=== PATIENT | male | born 1935 | race Caucasian/White ===

== ENCOUNTER → 2018-04-17 | Day surgery (SDC) | payer MEDICARE ==
[~2018-04-17] MED LIST: ASPIRIN81 MG PO; BELLADONNA/OPIUM 60 MG SUPP PR ONE; BLOOD PRESSURE PO; CEFTRIAXONE SOD 1 GM VIAL ONE; DEXAMETHASONE SOD PHOS INJ 4 MG/ML VIAL ONE; FENTANYL CITRATE/PF 100MCG/2 ML INJ ONE; FLOMAX0.4 MG PO; IOPAMIDOL 610MG/1ML 300 MG/ML VIAL IV ONE; LIDOCAINE HCL 2% LOCAL INJ 5 ML SDV VIAL INJ ONE; LISINOPRIL10 MG PO; ONDANSETRON HCL INJ 2 MG/ML VIAL ONE; PRAVASTATIN SOD40 MG PO; PROPOFOL IV EMULSION 10 MG/ML 20 ML VIAL ONE; SEVOFLURANE INHAL SOLN 250 ML PEN BTL ONE
--- OUTSIDE RECORDS SUMMARY | 2018-04-17 09:00 | XMS REPORT ---
Author Author [facility] Address Unknown Phone Unavailable Care Team Providers Care Internal Medicine Nurse Practitioner Name Role Phone AARON PRETTY Unavailable Unavailable Problems This patient has no known problems. Allergies, Adverse Reactions, Alerts This patient has no known allergies or adverse reactions. Medications This patient has no known medications. Results Test Description Test Time Test Comments Text Results Atomic Results Result Comments CHEST [address] [address] Patient Name: CATRINA SUTHERLAND MR #: [id number] : 1935 Age/Sex: 81/M Req #: [id number] Adm Physician: Ordered by: AARON PRETTY MD Report #: [id number] Location: OR Room/Bed: Procedure: [id number] DX/CHEST 2 VIEWS Exam Date: 03/05/17 Exam Time: 1035 REPORT STATUS: Signed PROCEDURE: Frontal and lateral views of the chest. COMPARISON: None. INDICATIONS: PRE OP PROSTATE SURGERY FINDINGS: Lines/tubes: None. Lungs: The lungs are mildly hyperexpanded. There is basilar scarring. There is no evidence of pneumonia or pulmonary edema. A prominent nipple shadow is projected over the left lower lung. Pleura: There is no pleural effusion or pneumothorax. Heart and mediastinum: The heart and the mediastinum are normal. Bones: No acute bony abnormality. IMPRESSION: Mildly hyperexpanded lungs and basilar scarring, suggestive of COPD. No acute cardiopulmonary abnormality. Dictated by: Natividad Wade M.D. on 03/05/2017 at 13:50 Electronically approved by: Natividad Wade M.D. on 03/05/2017 at 13:50 Dictated By: Charmaine WADE MD 1350 Transcribed By: DONNA on 03/05/17 1350 COPY TO: AARON PRETTY MD
--- NOTE | 2018-04-17 09:34 | Diagnostic Imaging Report ---
PROCEDURE: Frontal and lateral views of the chest. COMPARISON: Chest radiograph 03/05/17. INDICATIONS: PREOPERATIVE CHEST XRAY FOR PROSTATE SURGERY FINDINGS: Lines/tubes: Linear radiopaque density overlying the right medial third rib is overlying the patient on lateral view. Lungs: The lungs are mildly hyperinflated. Mild patchy bibasilar opacities. No evidence of lobar consolidation. No evidence of pulmonary edema. Pleura: There is no pleural effusion or pneumothorax. Heart and mediastinum: The cardiomediastinal silhouette is unremarkable. Bones: No acute bony abnormality. IMPRESSION: Emphysematous changes of the lungs with patchy bibasilar opacities, likely atelectasis. No evidence of lobar pneumonia or pulmonary edema. Dictated by: LAMINE LEE M.D. on 04/17/2018 at 9:42 Electronically approved by: LAMINE LEE M.D. on 04/17/2018 at 9:42
[2018-04-17] MEDS: GENTAMICIN 80MG/NS 100 ML 200 ML IV ONE (10:01)
[2018-04-17 14:30] VITALS: BP 151/83
--- NOTE | 2018-05-20 06:05 | Operative Report ---
DATE OF PROCEDURE: April 17, 2018 PREOPERATIVE DIAGNOSES 1. Obstructive BPH. 2. Urinary tract infections. POSTOPERATIVE DIAGNOSES 1. Obstructive BPH. 2. Urinary tract infections. 3. Urethral stricture disease. OPERATIONS PERFORMED 1. Cystourethroscopy with calibration and dilation of urethral stricture (separate procedure performed for the diagnosis of stricture). 2. Cystourethroscopy with bilateral ureteral catheterization and retrograde ureteropyelography (separate procedure performed for the urinary tract infection history). 3. Interpretation of retrograde ureteropyelography. 4. Cystourethroscopy with transurethral resection of the prostate utilizing the plasma button electrode. ANESTHESIA: General. COMPLICATIONS: None. CLINICAL SUMMARY: Rashad Malcolm is an 82-year-old man with obstructive BPH. He underwent prostate biopsies in August of 2016, which were negative for cancer. He has a prostate volume of 56 mL by transrectal ultrasound. Patient has had a urinary tract infection history. The patient had previously desired to proceed with UroLift implants. Six implants were implanted in February of 2017. The patient has had continued symptomatology, and he is brought to the operating room today for transurethral resection of the prostate. He is aware the risks of bleeding, infection, injury to adjacent structures, need for other procedures, and elected to proceed. OPERATIVE PROCEDURE IN DETAIL: Informed consent was verified. Rashad Malcolm was properly identified and taken to the operating room and placed on the cystoscopy table in the supine position. Anesthesia was uneventfully begun. The patient was then carefully and gently repositioned in the dorsal lithotomy position with all pressure points well-padded. His genitalia were prepared and draped in the usual sterile fashion. A 22.5-Sri Lankan cystoscope sheath with visual obturator in place was atraumatically inserted into the patient's urethra. It was guided into the meatus, but it could not be advanced past the fossa navicularis. We calibrated the fossa navicularis to approximately 16-Sri Lankan in size, and progressively dilated it to 30-Sri Lankan in size with female sounds. We were then easily able to place the cystoscope sheath with visual obturator into the patient's urethra. It was guided down the urethra that otherwise exhibited wide caliber non-clinically significant bands. We passed a normal sphincteric region and went through the prostate bed, which was significant for visually obstructing bilateral bilobar BPH. We went into the patient's bladder, which exhibited diffuse small diverticula and this heavy grade 4 trabeculations. No suspicious lesions were identified. A ureteral catheter was used to cannulate each ureter, and retrograde ureteropyelograms were performed. Interpretation of retrograde ureteropyelography. Contrast was instilled in a retrograde fashion bilaterally. There were no tumors. No stones and no diverticula. Unobstructed drainage was observed bilaterally fluoroscopically. The resectoscope was then placed. We then proceeded with performing transurethral vaporization of the prostate utilizing the plasma button electrode. We worked from the bladder neck, but never passed the verumontanum and down to the surgical capsule. The 6 UroLift implants were removed and evacuated. The patient's prostate was very fibrous, which would explain why the UroLift was not fully successful. The patient also had enumerable prostatic stones in the junction between the peripheral zone and transition zone most noted in the apical region consistent with a chronic prostatitis. Pinpoint electrocautery was utilized to achieve hemostasis. The patient's was withdrawn. A Daley catheter was then placed. It was irrigated to ensure it worked properly. The patient was uneventfully reversed from anesthesia and taken to the recovery room in stable condition. There were no complications to the procedure. He tolerated the procedure well. Explicit postop instructions were given. Will follow the patient up in the office at which point in time will perform uroflowmetry and bladder ultrasonography. Job#: [id number] CAPRICE
== END | disposition home or self-care (01) ==
LOC: OR 08:57
PROVIDERS: ATTEND Urology
DX: N40.1 Benign prostatic hyperplasia with lower urinary tract symptoms (principal); N40.3 Nodular prostate with lower urinary tract symptoms; R39.14 Feeling of incomplete bladder emptying; R35.1 Nocturia; N39.41 Urge incontinence; N13.8 Other obstructive and reflux uropathy; N35.919 Unspecified urethral stricture, male, unspecified site; N32.3 Diverticulum of bladder; N32.89 Other specified disorders of bladder; N42.89 Other specified disorders of prostate; N42.0 Calculus of prostate; R97.20 Elevated prostate specific antigen [PSA]; I10 Essential (primary) hypertension; Z01.818 Encounter for other preprocedural examination; Z79.82 Long term (current) use of aspirin
CPT/HCPCS: 52005; 52601; 71046; 74420; C1758; J0696; J1100; J1580; J2001; J2405; J2704; Q9967

== ENCOUNTER → 2018-11-13 | Outpatient (CLI) | payer MEDICARE ==
[~2018-11-13] MED LIST changes: -BELLADONNA/OPIUM 60 MG SUPP PR ONE; -CEFTRIAXONE SOD 1 GM VIAL ONE; -DEXAMETHASONE SOD PHOS INJ 4 MG/ML VIAL ONE; -FENTANYL CITRATE/PF 100MCG/2 ML INJ ONE; +GADOBENATE DIMEGLUMINE 1 ML IV ONE; -IOPAMIDOL 610MG/1ML 300 MG/ML VIAL IV ONE; -LIDOCAINE HCL 2% LOCAL INJ 5 ML SDV VIAL INJ ONE; -ONDANSETRON HCL INJ 2 MG/ML VIAL ONE; -PROPOFOL IV EMULSION 10 MG/ML 20 ML VIAL ONE; -SEVOFLURANE INHAL SOLN 250 ML PEN BTL ONE
[2018-11-13 14:35] LABS: BLOOD UREA NITROGEN 14 mg/dL (7-26); BUN/CREATININE RATIO 14 (6-25); CREATININE, SERUM 1.03 mg/dL (0.72-1.25); EST GLOMERULAR FILTRATION RATE > 60 ML/MIN (60-)
--- NOTE | 2018-11-13 16:15 | Diagnostic Imaging Report ---
TECHNIQUE: Magnetic resonance imaging of the RIGHT HAND (optimized to evaluate the long finger) was performed WITH and WITHOUT injected contrast, 15 cc of intravenous MultiHance. A skin marker overlies the ulnar aspect of the long finger at the level of the middle phalanx, mild associated artifact slightly limits evaluation of the mass. HISTORY: Mass, right long finger, rule out giant cell tumor COMPARISON: None available FINDINGS: Bones: No focal or infiltrative bone marrow replacing abnormalities identified. No acute fracture or osteonecrosis. Joints: The joint spaces appear well-maintained. No joint effusion. Soft Tissues: Underlying the region of the skin marker, a 1.6 cm (AP) x 0.9 cm (ML) x 1.7 cm (CC) lobulated soft tissue mass. Signal characteristics include: Isointense on fat sensitive images, hyperintense on fluid sensitive images with a septated appearance on STIR, and there appears to be diffuse homogeneous enhancement on the images are not affected by the described artifacts. IMPRESSION: Soft tissue mass at the ulnar side of the long finger at the level of the proximal half of the middle phalanx, within the stated limitation, the mass appears to be solid and enhancing. The signal characteristics are not classic for a giant cell tumor of the tendon sheath. The differential diagnosis includes other soft tissue neoplasms such as synovial sarcoma. Consider biopsy for definitive diagnosis. Signed by: Dr. Mane Garrett D.O., M.M.M. on 11/13/2018 4:11 PM
== END ==
LOC: MRI 13:50
PROVIDERS: ATTEND Plastic Surgery
DX: R22.31 Localized swelling, mass and lump, right upper limb (principal)
CPT/HCPCS: 36415; 82565; 84520

== ENCOUNTER → 2019-01-28 | Day surgery (SDC) | payer MEDICARE ==
[2019-01-22 16:10] LABS: BASOPHILS % 0.4 % (0.0-1.0); EOSINOPHILS # (AUTO) 0.2 (0.0-0.4); EOSINOPHILS % 1.7 % (0.0-6.0); HEMATOCRIT 45.2 % (38.2-49.6); LYMPHOCYTES # (AUTO) 1.8 (1.0-3.2); LYMPHOCYTES % 18.1 % (18.0-39.1); MEAN CORPUSCULAR HEMOGLOBIN 30.5 pg (28-32); MEAN CORPUSCULAR HGB CONC 33.2 g/dL (31-35); MEAN CORPUSCULAR VOLUME 92.1 fL (81-99); MONOCYTES # (AUTO) 0.9 (0.2-0.8); MONOCYTES % 8.7 % (4.4-11.3); NEUTROPHILS # (AUTO) 6.8 (2.1-6.9); NEUTROPHILS % 70.5 % (38.7-80.0); PLATELET COUNT 324 x10e3/uL (140-360); RED BLOOD COUNT 4.91 x10e6/uL (4.3-5.7); RED CELL DISTRIBUTION WIDTH 12.9 % (11.7-14.4)
[~2019-01-28] MED LIST changes: +BUPIVACAINE HCL 0.5% INJ 30 ML VIAL INJ ONE; +CEFAZOLIN SOD 1 GM/NS 50ML 50 ML IV ONE; +FENTANYL CITRATE/PF 100MCG/2 ML INJ ONE; -GADOBENATE DIMEGLUMINE 1 ML IV ONE; +KETOROLAC TROMETHAMINE 30 MG/ML VIAL ONE; +LIDOCAINE HCL 2% LOCAL 20 ML VIAL ONE; +LIDOCAINE HCL 2% LOCAL INJ 5 ML SDV VIAL INJ ONE; +MIDAZOLAM HCL 2 MG/2 ML VIAL ONE; +MUPIROCIN 2% OINT 22 GM TUBE ONE; +PROPOFOL IV EMULSION 10 MG/ML 20 ML VIAL ONE
[2019-01-28 10:00] VITALS: BP 118/63
--- NOTE | 2019-01-28 12:38 | Operative Report ---
DATE OF PROCEDURE: 01/28/2019 SURGEON: Johnathan Banerjee MD PREOPERATIVE DIAGNOSIS: Schwannoma, right long finger middle phalanx. POSTOPERATIVE DIAGNOSIS: Schwannoma, right long finger middle phalanx. PROCEDURE: Excision of schwannoma, right long finger. ANESTHESIA: MAC. HISTORY: The patient is an 83-year-old male with a biopsy-proven schwannoma on the ulnar aspect of the right long finger at the middle phalanx level. The risks, benefits, and alternatives of treatment were discussed with the patient and he is prepared to undergo the procedure as outlined. PROCEDURE IN DETAIL: The patient was marked preoperatively in the holding area. He was brought to the operating theater and after the induction of adequate IV sedation, he was prepped and draped in a supine position and a time-out was performed. A digital block around the base of the right long finger was performed, it utilized a 50:50 mixture of 0.5% plain Marcaine and 1% plain Xylocaine. A total of 8 mL was used in a circumferential fashion around the base of the long finger. At this point, a tourniquet was placed around the base of the finger and a mid axial incision was marked out on the ulnar aspect of the right long finger middle phalanx. The incision was made through the skin and subcutaneous tissues. Venous tributaries were controlled with bipolar cautery. The schwannoma was easily identified in the subcutaneous plane in the mid axial line, it was dissected all the way down to the ulnar digital nerve on the ulnar aspect of the middle phalanx. With the nerve clearly inside schwannoma was excised off the epineurial surface of the nerve, taking care to protect and preserve as many of the fibers of the digital nerve was possible. At this point, once the mass was removed in its entirety, it was sent for permanent pathologic examination. The wound was irrigated with bacteriostatic saline and closed with a 5-0 nylon in interrupted horizontal mattress fashion. The tourniquet was removed. The finger pinked up nicely and the wound was noted to be hemostatic. Bactroban ointment, Xeroform gauze, and a sterile dressing were applied. The patient tolerated the procedure well, and was brought to recovery room in satisfactory condition and discharged with a postoperative instruction sheet as well as a followup appointment. MD ESA Etienne/ANGELLAL /[id number]
== END | disposition home or self-care (01) ==
LOC: OR 05:58
PROVIDERS: ATTEND Plastic Surgery
DX: D36.12 Benign neoplasm of peripheral nerves and autonomic nervous system, upper limb, including shoulder (principal); I10 Essential (primary) hypertension; F17.220 Nicotine dependence, chewing tobacco, uncomplicated; Z01.810 Encounter for preprocedural cardiovascular examination; Z01.812 Encounter for preprocedural laboratory examination; Z79.82 Long term (current) use of aspirin; Z86.73 Personal history of transient ischemic attack (TIA), and cerebral infarction without residual deficits
CPT/HCPCS: 36415; 64776; 85025; 88305; 88342; 93005; J0690; J1885; J2001 ×2; J2250; J2704; J3010

== ENCOUNTER 2020-03-01 01:31 | Inpatient (IN) | payer MEDICARE ==
[~2020-03-01] VITALS: Ht 182.9 cm; Wt 72.6 kg
[2020-03-01] VITALS (8 sets, daily range): BP systolic 103–156; BP diastolic 71–90
[~2020-03-01 01:31] MED LIST changes: -BUPIVACAINE HCL 0.5% INJ 30 ML VIAL INJ ONE; -CEFAZOLIN SOD 1 GM/NS 50ML 50 ML IV ONE; -FENTANYL CITRATE/PF 100MCG/2 ML INJ ONE; -KETOROLAC TROMETHAMINE 30 MG/ML VIAL ONE; -LIDOCAINE HCL 2% LOCAL 20 ML VIAL ONE; -LIDOCAINE HCL 2% LOCAL INJ 5 ML SDV VIAL INJ ONE; -MIDAZOLAM HCL 2 MG/2 ML VIAL ONE; -MUPIROCIN 2% OINT 22 GM TUBE ONE; -PROPOFOL IV EMULSION 10 MG/ML 20 ML VIAL ONE
[2020-03-01] MEDS ORDERED: MORPHINE SULFATE INJ 4 MG/ML INJ 1ML IV STA ×2 (01:46→03:51)
[2020-03-01] MEDS ORDERED: ONDANSETRON HCL INJ 2MG/ML 2ML 2 MG/ML VIAL IV STA (01:46)
[2020-03-01] MEDS ORDERED: ONDANSETRON HCL INJ 2MG/ML 2ML 2 MG/ML VIAL ONE ×2 (01:55→13:18)
[2020-03-01] MEDS ORDERED: MORPHINE SULFATE INJ 4 MG/ML INJ 1ML ONE ×2 (02:01→04:27)
[2020-03-01 02:02] LABS: BASOPHILS % 0.2 % (0.0-1.0); EOSINOPHILS # (AUTO) 0.1 (0.0-0.4); EOSINOPHILS % 0.4 % (0.0-6.0); HEMATOCRIT 43.4 % (38.2-49.6); HEMOGLOBIN 14.4 g/dL (14.0-18.0); LYMPHOCYTES % 7.6 % (18.0-39.1); MEAN CORPUSCULAR HEMOGLOBIN 30.2 pg (28-32); MEAN CORPUSCULAR HGB CONC 33.2 g/dL (31-35); MONOCYTES # (AUTO) 0.9 (0.2-0.8); MONOCYTES % 6.9 % (4.4-11.3); NEUTROPHILS # (AUTO) 11.5 (2.1-6.9); NEUTROPHILS % 84.5 % (38.7-80.0); PLATELET COUNT 329 x10e3/uL (140-360); RED BLOOD COUNT 4.77 x10e6/uL (4.3-5.7); RED CELL DISTRIBUTION WIDTH 12.6 % (11.7-14.4)
[2020-03-01 02:05] LABS: PROTHROMBIN TIME 13.7 seconds (11.9-14.5)
[2020-03-01 02:11] LABS: LIPASE 9 U/L (8-78)
--- NOTE | 2020-03-01 02:11 | Emergency Department Note ---
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 Historian: Patient Arrival Mode: Car Therapist Rrt Required: No Onset (how long ago): hour(s) (1) Location: Abdomen Quality: sharp Radiation: Reports non-radiation Severity: moderate Onset quality: sudden Duration (how long): hour(s) Timing of current episode: constant Progression: worsening Chronicity: new Context: Denies recent illness, Denies recent surgery Relieving factors: none Exacerbating factors: none Associated symptoms: Reports denies other symptoms Treatments prior to arrival: none Past Medical/Family History Physician Review I have reviewed the patient's past medical and family history. Any updates have been documented here. Past Medical History Recent Fever: No Clinical Suspicion of Infectio: No New/Unexplained Change in Ment: No Past Medical History: Hypertension, Hyperlipedemia Other Medical History: BPH Past Surgical History: Appendectomy Social History Smoking Cessation: Never Smoker Counseling Performed: No Alcohol Use: Daily Any Illegal Drug Use: No Review of Systems Review of Systems Constitutional: Reports no symptoms EENTM: Reports no symptoms Cardiovascular: Reports no symptoms Respiratory: Reports no symptoms Gastrointestinal: Reports as per HPI, Reports abdominal pain, Reports nausea, Reports vomiting Genitourinary: Reports no symptoms Musculoskeletal: Reports no symptoms Integumentary: Reports no symptoms Neurological: Reports no symptoms Psychological: Reports no symptoms Endocrine: Reports no symptoms Hematological/Lymphatic: Reports no symptoms Physical Exam Related Data Allergies: Coded Allergies: No Known Allergies (Unverified , 01/22/19) Triage Vital Signs Vital Signs Date Time Temp Pulse Resp B/P (MAP) Pulse Ox O2 Delivery O2 Flow Rate FiO2 03/01/20 01:34 97.7 77 24 185/117 100 Room Air Vital signs reviewed: Yes Physical Exam CONSTITUTIONAL Constitutional: Present well-developed, Present well-nourished HENT HENT: Present normocephalic, Present atraumatic, Present oropharynx clear/moist, Present nose normal HENT L/R: Present left ext ear normal, Present right ext ear normal EYES Eyes: Reports PERRL, Reports conjunctivae normal NECK Neck: Present ROM normal PULMONARY Pulmonary: Present effort normal, Present breath sounds normal CARDIOVASCULAR Cardiovascular: Present regular rhythm, Present heart sounds normal, Present capillary refill normal, Present normal rate GASTROINTESTINAL Abdominal: Present soft, Present bowel sounds normal, Present tender (mild) GENITOURINARY Genitourinary: Present exam deferred SKIN Skin: Present warm, Present dry MUSCULOSKELETAL Musculoskeletal: Present ROM normal NEUROLOGICAL Neurological: Present alert, Present oriented x 3, Present no gross motor or sensory deficits PSYCHOLOGICAL Psychological: Present mood/affect normal, Present judgement normal Results Laboratory Laboratory Laboratory Tests Test 03/01/20 01:40 Lab results reviewed: Yes Imaging Imaging results reviewed: Yes Diagnostics Tests Diagnostic test(s) reviewed: Yes Procedures 12 Lead ECG Interpretation ECG Interpretation : Therapist Rrt: Interpreted by ED physician Date: Mar 01, 2020 Rhythm: sinus rhythm Rate: normal QRS axis: normal ST segments normal: Yes T waves normal: Yes Clinical Impression: normal ECG Assessment & Plan Medical Decision Making MDM 84-year-old male presents for acute onset abdominal pain initial differential includes abdominal aneurysm versus volvulus versus hernia among others. Exam shows abdominal tenderness. CT abdomen and pelvis shows internal hernia with signs of ischemia. Dr. Stephane Myers was consulted and will perform surgery in a few hours. Patient was discussed with Dr. Scott is agreed for admission. Patient's transfer to the floor. Reassessment Reassessment time: 04:10 Reassessment Pain improved Assessment & Plan Final Impression: (1) Internal hernia Depart Disposition: ADMITTED Last Vital Signs Date Time Temp Pulse Resp B/P (MAP) Pulse Ox O2 Delivery O2 Flow Rate FiO2 03/01/20 02:08 85 22 200/90 100 Room Air 03/01/20 01:34 97.7 Home Meds Reported Medications Lisinopril (LISINOPRIL) 10 Mg Tablet, 10 MG PO HS, #30 TAB 04/16/18 Aspirin (ASPIRIN) 81 Mg Tab.chew, 81 MG PO DAILY 03/06/17 Pravastatin Sodium (PRAVASTATIN SODIUM) 40 Mg Tablet, 20 MG PO DAILY 03/06/17 Medications in the ED Ondansetron HCl 8 mg NOW STAT IV Last administered on 03/01/20at 01:52; Admin Dose 8 MG; Start 03/01/20 at 01:46; Stop 03/01/20 at 01:53; Status DC Morphine Sulfate 4 mg NOW STAT IV Last administered on 03/01/20at 01:58; Admin Dose 4 MG; Start 03/01/20 at 01:46; Stop 03/01/20 at 01:54; Status DC Ondansetron HCl 8 mg STK-MED ONCE .ROUTE ; Start 03/01/20 at 01:55; Stop 03/01/20 at 01:53; Status DC Morphine Sulfate 4 mg STK-MED ONCE .ROUTE ; Start 03/01/20 at 02:01; Stop 03/01/20 at 01:54; Status DC NAYELI BLACK MD Mar 01, 2020 02:11
[2020-03-01 02:15] LABS: ALANINE AMINOTRANSFERASE 17 IU/L (0-55); ALBUMIN 4.4 g/dL (3.5-5.0); ALBUMIN/GLOBULIN RATIO 1.3 (0.8-2.0); ALKALINE PHOSPHATASE 66 IU/L (40-150); ANION GAP 14.4 mmol/L (8-16); BLOOD UREA NITROGEN 11 mg/dL (7-26); BUN/CREATININE RATIO 10 (6-25); CALCIUM 9.1 mg/dL (8.4-10.2); CARBON DIOXIDE 24 mmol/L (22-29); CHLORIDE 102 mmol/L (98-107); CREATININE, SERUM 1.08 mg/dL (0.72-1.25); EST GLOMERULAR FILTRATION RATE > 60 ML/MIN (60-); GLUCOSE 157 mg/dL (74-118); POTASSIUM 5.4 mmol/L (3.5-5.1); SODIUM 135 mmol/L (136-145)
[2020-03-01] MEDS ORDERED: SODIUM CHLORIDE 0.9% 100 ML ONE (02:55)
[2020-03-01] MEDS ORDERED: IOPAMIDOL 370 MG/ML 200 ML INFUS..BTL INJ ONE (02:55)
--- NOTE | 2020-03-01 03:05 | Diagnostic Imaging Report ---
EXAMINATION: CHEST SINGLE (PORTABLE), ABDOMEN-1VIEW (KUB) INDICATION: ^Y ^CP ^[id number] ^0205 COMPARISON: None FINDINGS: Heart is not enlarged. Pulmonary vasculature is within normal limits. There are mild increased reticulonodular lung markings at the lung bases which have mildly increased from 2017. No pleural effusion. No pneumothorax. Gas and stool are seen throughout the colon to the level of the rectum. No dilated small bowel loops are present. Surgical clips are seen in the pelvis. IMPRESSION: 1. Mild bibasilar reticulonodular densities at the lung bases, mildly increased from 2017, likely represent chronic parenchymal changes. No consolidation. 2. Nonobstructive bowel gas pattern. Signed by: David Vivar MD on 03/01/2020 3:01 AM
--- NOTE | 2020-03-01 03:05 | Diagnostic Imaging Report ---
EXAMINATION: CHEST SINGLE (PORTABLE), ABDOMEN-1VIEW (KUB) INDICATION: ^Y ^CP ^[id number] ^0205 COMPARISON: None FINDINGS: Heart is not enlarged. Pulmonary vasculature is within normal limits. There are mild increased reticulonodular lung markings at the lung bases which have mildly increased from 2017. No pleural effusion. No pneumothorax. Gas and stool are seen throughout the colon to the level of the rectum. No dilated small bowel loops are present. Surgical clips are seen in the pelvis. IMPRESSION: 1. Mild bibasilar reticulonodular densities at the lung bases, mildly increased from 2017, likely represent chronic parenchymal changes. No consolidation. 2. Nonobstructive bowel gas pattern. Signed by: David Vivar MD on 03/01/2020 3:01 AM
[2020-03-01] MEDS ORDERED: SODIUM CHLORIDE 0.9% 1000ML 1,000 ML IV SCH (03:45)
[2020-03-01] MEDS ORDERED: SODIUM CHLORIDE 0.9% 1000ML 1,000 ML ONE (03:50)
[2020-03-01] MEDS ORDERED: PIPERACILLIN/TAZO 4.5 GM 100 ML IV STA (03:52)
--- NOTE | 2020-03-01 04:08 | Diagnostic Imaging Report ---
EXAM: CTA of the Abdominal Aorta and Pelvic Arteries WITH Contrast INDICATION: Abd pain COMPARISON: None. TECHNIQUE: Multi-detector CT technology was employed. CTA of the abdomen and pelvis was performed after the administration of IV contrast. IV CONTRAST: 150 mL of Omnipaque 350 ORAL CONTRAST: None COMPLICATIONS: None For optimization of anatomic evaluation, multiplanar reconstruction, maximum intensity projections, and advanced 3-D off-line postprocessing were performed on a dedicated stand-alone workstation under the direct supervision of the interpreting physician. FINDINGS: LOWER CHEST: Chronic peripheral fibrotic changes at the lung bases. Aorta: Aneurysmal dilatation of the infrarenal abdominal aorta measuring up to 3.9 cm with eccentric noncalcified plaque within the hernia sac. Celiac trunk is patent. SMA is patent. Renal arteries: Moderate calcified and noncalcified plaque at the origin of the right renal artery produces at least moderate to severe stenosis. The left renal artery is patent. OMAIRA is patent. Iliofemoral vessels are moderate atherosclerotic disease of the iliofemoral vessels, but the vessels are patent. 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 ABDOMEN: Multiple fluid-filled dilated small bowel loops measuring up to 3.1 cm are clustered in the right hemiabdomen lateral to the ascending colon in the right paracolic gutter. There is marked wall thickening measuring up to 7 mm. The kohler are intrinsically hyperdense on precontrast imaging suggestive of submucosal hemorrhage there is a suggestion of 2 transition points on coronal imaging is appreciated on images series 506 image 39. Associated mesenteric edema. Limited evaluation of the viscera due to later arterial phase technique. No significant abnormality of these liver, spleen, adrenal glands, and pancreas. No hydronephrosis. Enlarged prostate. IMPRESSION: 1. Findings concerning for a closed loop small bowel obstruction likely via right paracolic gutter internal hernia. CT findings are concerning for bowel ischemia. Emergent surgical consultation is recommended. 2. Aneurysmal dilatation of the infrarenal abdominal aorta measuring up to 3.9 cm. No evidence of instability. Critical results were discussed with Dr. Quick on 03/01/2020 at 3:50 AM. Signed by: David Vivar MD on 03/01/2020 4:04 AM
[2020-03-01] MEDS ORDERED: BENZOCAINE/TETRACAINE/BUTAMBEN AERO SPRAY 56 GM CAN ONE (04:26)
[2020-03-01 04:38] LABS: CLARITY,URINE CLEAR (CLEAR); COLOR,URINE YELLOW (YELLOW); LEUKOCYTE ESTERASE ,URINE NEGATIVE (NEGATIVE); NITRITE,URINE NEGATIVE (NEGATIVE)
[2020-03-01 04:39] LABS: BACTERIA,URINE RARE /HPF; BILIRUBIN,URINE NEGATIVE (NEGATIVE); EPITHELIAL CELLS,URINE RARE /LPF; KETONES,URINE TRACE (NEGATIVE); PROTEIN,URINE DIPSTICK NEGATIVE (NEGATIVE); RBC,URINE 0-5 /HPF (0-5); URINE UROBILINOGEN 0.2 mg/dL (0.2 - 1); WBC,URINE (MAN) 0-5 /HPF (0-5)
[2020-03-01] MEDS ORDERED: BENZOCAINE 20% SPR 60 ML CAN MT ONE (04:45)
--- NOTE | 2020-03-01 04:53 | NUR ---
PATIENT TOLERATED NG TUBE INSERTION WELL- 18FR- MEASURED 18 INCHES- VERIFICATION CHECKED VIA AIR ASCULTATION. NO FURTHER COMPLICATIONS NOTED
[2020-03-01] MEDS ORDERED: HYDROMORPHONE 1MG/1ML INJ IV STA (05:08)
[2020-03-01] MEDS: SODIUM CHLORIDE 0.9% 1000ML 1,000 ML IV SCH ×3 (05:57→20:15)
--- NOTE | 2020-03-01 06:11 | Consultation ---
DATE OF CONSULTATION: 03/01/2020 Surgical Consultation DATE OF PROCEDURE: March 01, 2020. REASON FOR CONSULTATION: Closed loop obstruction. HISTORY OF PRESENT ILLNESS: The patient is an 84-year-old male, who was doing well until about 10 p.m. on February 28 when he suddenly developed diffuse mid abdominal pain. The patient vomited. Because of this, he came to the emergency room where a CT scan was performed, that revealed a closed loop obstruction in the right gutter region. His only previous surgery is appendectomy at age 17. PAST MEDICAL HISTORY: Unremarkable. He takes statins for high cholesterol. PAST SURGICAL HISTORY: His previous surgery as stated, appendectomy at age 17. ALLERGIES: HE HAS NO KNOWN ALLERGIES. HE SMOKES CIGARS AND DRINKS A COUPLE OF DRINKS A DAY. FAMILY HISTORY: Noncontributory. REVIEW OF SYSTEMS: He denies any shortness of breath or chest pain. His main complaint is severe diffuse abdominal pain. PHYSICAL EXAMINATION: GENERAL: Reveals an 84-year-old male, who is hard of hearing. He appears somewhat uncomfortable, complaining of abdominal pain. VITAL SIGNS: Temperature is 97, pulse is 98, respiratory rate is 26, blood pressure is 211/109. HEAD, EYES, EARS, NOSE, AND THROAT: Reveals no acute process. LUNGS: Clear. HEART: Reveals regular sinus rhythm. ABDOMEN: Reveals diffuse guarding and tenderness. Bowel sounds are present and somewhat hyperactive. There is no obviously visible scars even though he had an appendectomy at age 17. LABORATORY DATA: Revealed white count of 13,000 with a shift to the left. Admission electrolytes are unremarkable except for potassium of 5.4. Lactic acid level is 2.1. Chest x-ray reveals no acute process. There is some peripheral nodular densities at the lung bases, which are present since 2017, perhaps slightly increased. ASSESSMENT: Closed loop obstruction with strangulated bowel. PLAN: To proceed with emergency surgery. The procedure indication, benefits, and risks have been discussed with the patient and his , they agreed and gave informed consent. MD ALEX Dumont/ERICA /[id number]
--- NOTE | 2020-03-01 06:28 | NUR ---
Prosper escobedo in [facility] - 03/01/20 at 0645 by STANLEY SPOKE TO OR NURSE, UNIQUE REGARDING CRITICAL LAB VALUE, LACTIC ACID 2.7.
--- NOTE | 2020-03-01 06:50 | NUR ---
OR CHARGE NURSE NOTIFIED AND AWARE OF CRITICAL LAB VALUE, LACTIC ACID 2.7.
--- NOTE | 2020-03-01 07:01 | NUR ---
DR. BALL CALLED AT [phone] TO BE NOTIFIED OF CRITICAL LACTIC ACID- RADHA David-ANSWERING SERVICE TOOK MESSAGE REGARDING RESULTS AND WILL NOTIFY MD. PATIENT IS NO LONGER IN ER DEPARTMENT AND WAS SENT TO OR EMERGENTLY FOR PROCEDURE, MARIBEL RN-CHARGE NURSE-NOTIFIED OF PENDING CALL.
--- NOTE | 2020-03-01 07:05 | NUR ---
LEXIE EUBANKS- 'S SHAKE LOADER PROVIDER NOTIFIED OF CRITICAL LACTIC ACID 2.7, NO NEW ORDERS AT THIS MOMENT.
[2020-03-01] MEDS: PANTOPRAZOLE 40 MG 10ML VIAL IV SCH (08:30)
[2020-03-01] MEDS ORDERED: FENTANYL CITRATE/PF 100MCG/2 ML INJ ONE ×2 (08:40→12:59)
--- NOTE | 2020-03-01 08:48 | Operative Report ---
DATE OF PROCEDURE: 03/01/2020 SURGEON: Nathan Myers MD PREOPERATIVE DIAGNOSIS: bowel. POSTOPERATIVE DIAGNOSIS: bowel. PROCEDURE PERFORMED: Exploratory laparotomy and resection of small bowel. INDICATION AND FINDINGS: The patient is an 84-year-old male, hard of hearing, who was admitted complaining of acute onset of abdominal pain since 4 p.m. the day prior to admission. The patient presented in the middle of the night to the emergency room where he was found to be acidotic with elevated lactic acid levels. CT scan of the abdomen performed revealed ischemic bowel loops in the right gutter and right upper quadrant. There appeared to be a closed loop obstruction. On physical examination, the patient presented with diffuse abdominal tenderness and guarding and rebound. The patient was resuscitated in the emergency room with IV fluids and then taken to the operating room for laparotomy. INTRAOPERATIVE FINDINGS: The patient had about 2 to 3 feet of small bowel. No more than that, that were matted together in the right upper quadrant region and the right gutter, just under the subhepatic location. There were adhesions in that location. I was not able to find a single closed loop of bowel. Instead, I found multiple loops of bowel. At this point, I decided that the better part of Valor was to go ahead and after the resection not to put it back together and take a second-look operation in 48 hours after ascertaining the viability of the remaining part of the bowel. DESCRIPTION OF PROCEDURE: With the patient lying on the operative table in the supine position, after administration of general anesthesia, he was prepped and draped for exploratory laparotomy. The abdomen was entered via midline incision and then the findings noted above were seen. We lysed some adhesions and we got to the small bowel loops that were then eviscerated after lysis of adhesions. I was not able to find any type of internal hernia and I was not able to find transition points of the small bowel suggested by CT scan. I decided at this point that it would be best to resect the bowel if not anastomosis, and take second look rather than risking the anastomosis and ischemic process that could have been ongoing and could have produced the anastomotic leak. After we did that, we copiously irrigated the abdomen until the effluent fluid was clear. We then lysed adhesions of the omentum to the abdomen until they were all free and at this point, we closed the wound with a running one Prolene and the skin with jennifer. Sterile dressing was applied. The patient tolerated the procedure well, was taken to recovery room in stable condition. MD ALEX Dumont/ERICA /[id number]
--- NOTE | 2020-03-01 09:12 | Diagnostic Imaging Report ---
EXAMINATION: CHEST SINGLE (PORTABLE) INDICATION: Postoperative COMPARISON: Chest radiograph 03/01/2020 FINDINGS: LINES/TUBES:Left subclavian central venous catheter terminates in the SVC. Enteric tube projects below the diaphragm with tip not visualized. EKG leads overlie the chest. LUNGS:The lungs are well-inflated. Minimal bibasilar subsegmental atelectasis. No focal consolidation or pulmonary edema. PLEURA:No pleural effusion or pneumothorax. MEDIASTINUM:The cardiomediastinal silhouette appears normal in size and shape. BONES/SOFT TISSUES:No acute osseous injury. ABDOMEN:No free air under the diaphragm. IMPRESSION: Minimal bibasilar subsegmental atelectasis. No focal pneumonia or pulmonary edema. Signed by: Manjit Bee MD on 03/01/2020 9:09 AM
[2020-03-01] MEDS ORDERED: PANTOPRAZOLE 40 MG 10ML VIAL ONE (09:24)
[2020-03-01] MEDS: CEFTRIAXONE SOD 1 GM/NS 50 ML 50 ML IV SCH (09:32)
[2020-03-01] MEDS: METRONIDAZOLE 500MG/NS 100ML 100 ML IV SCH ×2 (12:00→18:21)
[2020-03-01] MEDS ORDERED: MIDAZOLAM HCL 2 MG/2 ML VIAL ONE (12:59)
[2020-03-01] MEDS ORDERED: NEOSTIGMINE 1 MG/ML 10ML VIAL ONE (13:18)
[2020-03-01] MEDS ORDERED: SEVOFLURANE INHAL SOLN 250 ML PEN BTL ONE (13:18)
[2020-03-01] MEDS ORDERED: ATROPINE SULFATE 1 MG/ML VIAL ONE (13:18)
[2020-03-01] MEDS ORDERED: ROCURONIUM BROMIDE 10 MG/ML 5ML VIAL IV ONE (13:18)
[2020-03-01] MEDS ORDERED: PROPOFOL IV EMULSION 10 MG/ML 20 ML VIAL ONE (13:18)
[2020-03-01] MEDS ORDERED: LABETALOL HCL 5 MG/ML 20ML VIAL ONE (13:18)
[2020-03-01] MEDS ORDERED: LIDOCAINE HCL 2% LOCAL INJ 5 ML SDV VIAL INJ ONE (13:18)
[2020-03-01] MEDS ORDERED: SUCCINYLCHOLINE CHLORIDE 20 MG/ML 10ML VIAL ONE (13:18)
[2020-03-01] MEDS ORDERED: KETOROLAC TROMETHAMINE 30 MG/ML VIAL ONE (13:18)
[2020-03-01] MEDS: DEXTROSE 5%/LACTATED RINGERS 1,000 ML IV SCH ×3 (14:25→23:20)
[2020-03-01] MEDS ORDERED: CHLORASEPTIC SPRAY 177 ML BTL MM PRN ×2 (14:30→18:45)
--- NOTE | 2020-03-01 16:04 | NUR ---
patient was transfer from [facility] s/p exlap w bowel resection. surgical dressing and tape to midline abd incision. no s/s of bleeding noted. NG tube to wall suction with brown output. patient is awake alert and oriented but hared hearing on both ears, hearing aid on bedside with patient. patient had a left subclavian double lumen and dressing was changed.
--- NOTE | 2020-03-01 19:30 | NUR ---
Pt. alert and oriented x3. Respirations are even and unlabored. NG tube is to low suction and draining brown drainage. Abd. dressing is clean,dry,intact. Daley catheter is patent and intact draining yellow urine.
[2020-03-01] MEDS ORDERED: ONDANSETRON HCL INJ 2MG/ML 2ML 2 MG/ML VIAL IV PRN (22:30)
[2020-03-01] MEDS: HYDROMORPHONE 1MG/1ML INJ IV PRN (22:54)
[2020-03-01] MEDS: ONDANSETRON HCL INJ 2MG/ML 2ML 2 MG/ML VIAL IV PRN (22:54)
[2020-03-02] VITALS (8 sets, daily range): BP systolic 137–162; BP diastolic 60–85
[2020-03-02] MEDS: METRONIDAZOLE 500MG/NS 100ML 100 ML IV SCH ×5 (00:04→23:55)
--- NOTE | 2020-03-02 02:22 | History and Physical ---
CONSULTING PHYSICIAN: Dr. Nathan Myers with Surgery. CHIEF COMPLAINT: Abdominal pain. PRIMARY CARE PHYSICIAN: Dr. Krishna Olivera. HISTORY OF PRESENT ILLNESS: The patient is an 84-year-old male, who was admitted via the emergency department with complaints of epigastric abdominal pain radiating to the umbilical region with nausea and vomiting, onset 4 hours prior to admission with a pain level of 9/10 in the emergency department. He is currently seen in intermediate care unit, room 187, status post exploratory laparotomy with bowel resection today with plans for additional surgery in the morning. PAST MEDICAL HISTORY: Hypertension, hyperlipidemia, and benign prostatic hypertrophy. PAST SURGICAL HISTORY: Appendectomy, UroLift, prostate surgery. FAMILY HISTORY: Noncontributory. Denies any past family history. SOCIAL HISTORY: The patient smokes cigars 2 to 3 times a week. Drinks 2 alcoholic drinks per day. Denies any illicit drug use. ALLERGIES: NO KNOWN ALLERGIES. HOME MEDICATIONS: Aspirin 81 mg daily, lisinopril 10 mg at bedtime, and pravastatin 20 mg daily. REVIEW OF SYSTEMS: 14-point review of systems was completed, essentially ROS is negative except for the following. CONSTITUTIONAL: The patient was having chills yesterday. He states that these improved. EYES: He wears glasses. EARS: He is hard of hearing. Wears hearing aids. GASTROINTESTINAL: Abdominal pain, 9/10 on admission, which increases with any movement or cough. Currently, abdominal pain 6/10 on a 0-10 pain scale. Nausea yesterday, none right now. PHYSICAL EXAMINATION: VITAL SIGNS: Temperature 97.2, pulse 89, blood pressure 122/72, respirations 16, oxygen saturation 100% on room air. Height 5 feet 7 inches, weight 123 pounds, BMI 19.26. GENERAL: Supine, in no acute distress. LUNGS: Diminished, poor inspiratory volume. HEENT: EOMI. Left nare NG tube to intermittent low wall suction. NECK: Supple. No lymphadenopathy, thyromegaly, or JVD noted. CARDIOVASCULAR: Regular rate and rhythm. No murmur. The patient has a left subclavian triple-lumen central venous catheter. ABDOMEN: Bowel sounds positive. Soft, nontender. EXTREMITIES: No pitting edema. No clubbing, cyanosis, or signs of DVT. NEUROLOGICAL: GCS 15. LABORATORY DATA: WBC 13.6, hemoglobin 14.4, hematocrit 43.4, and platelets 329. PT 13.7, INR 1.0. Sodium 135, potassium 5.4, chloride 102, CO2 of 24, anion gap 14.4, BUN 11, creatinine 1.08, estimated GFR greater than 60, glucose 157, lactic acid 2.1 followed by 2.7, calcium 9.1, total bilirubin 0.8, AST 29, ALT 17, alkaline phosphatase 66. Troponin I less than 0.001. Total protein 7.8, albumin 4.4, lipase 9. Urinalysis with pH 7, specific gravity 1.015. Trace amount of ketones, negative for nitrites, negative for leukocyte esterase, rare bacteria. Serology; Coronavirus PCR negative. Blood cultures x2 collected, results are pending. IMAGING: Chest x-ray with minimal bibasilar subsegmental atelectasis. No focal pneumonia or pulmonary edema. Abdomen/pelvis CT angio, findings concerning for closed loop small bowel obstruction, likely via right paracolic gutter internal hernia. CT findings are concerning for bowel ischemia. Emergent surgical consultation recommended. Aneurysmal dilation of the infrarenal abdominal aorta measuring up to 3.9 cm. No evidence of instability. Abdominal x-ray showed mild bibasilar reticulonodular densities at the lung bases, mildly increased from 2017, likely represent chronic parenchymal changes. No consolidation. Nonobstructive bowel gas pattern. ASSESSMENT AND PLAN: 1. Ischemic bowel, now status post exploratory laparotomy with small bowel resection on 03/[address] Charan Myers. The patient to have additional surgery tomorrow. Bedrest for now, n.p.o., keep NG tube to intermittent low wall suction. Monitor NG tube output. Reassess labs in the morning. 2. Acute abdominal pain. Continue Dilaudid p.r.n. for pain and monitor. 3. Controlled hypertension, 122/72. Pain control should help maintain the blood pressure, heart rate in the low 100 to one teens. We will use metoprolol tartrate IV p.r.n. for hypertension. 4. Hyperlipidemia. The patient uses statin at home. Resume that when able to tolerate p.o. 5. Active smoker with subsegmental atelectasis. Incentive spirometry explained and encouraged splinting technique explained. Encouraged smoking cessation. 6. Infrarenal abdominal aortic aneurysm measuring 3.9 cm. The patient may need to follow up with future CT scans post discharge. 7. Prophylaxis, SCDs and Protonix. Inpatient billing code [id number]. Time spent 60 minutes. Dictated by Santo Medley, RAIMUNDO MD ALICIA NixonP/ANGELLAL /[id number]
[2020-03-02] MEDS: HYDROMORPHONE 1MG/1ML INJ IV PRN ×3 (03:20→19:28)
[2020-03-02] MEDS: ONDANSETRON HCL INJ 2MG/ML 2ML 2 MG/ML VIAL IV PRN (03:20)
[2020-03-02 06:38] LABS: BASOPHILS % 0.2 % (0.0-1.0); EOSINOPHILS % 0.1 % (0.0-6.0); HEMATOCRIT 31.3 % (38.2-49.6); HEMOGLOBIN 10.3 g/dL (14.0-18.0); LYMPHOCYTES # (AUTO) 1.2 (1.0-3.2); MEAN CORPUSCULAR HEMOGLOBIN 30.3 pg (28-32); MEAN CORPUSCULAR HGB CONC 32.9 g/dL (31-35); MEAN CORPUSCULAR VOLUME 92.1 fL (81-99); MONOCYTES # (AUTO) 1.4 (0.2-0.8); MONOCYTES % 9.7 % (4.4-11.3); NEUTROPHILS # (AUTO) 11.7 (2.1-6.9); NEUTROPHILS % 81.6 % (38.7-80.0); PLATELET COUNT 248 x10e3/uL (140-360); RED CELL DISTRIBUTION WIDTH 13.2 % (11.7-14.4)
[2020-03-02 06:58] LABS: ANION GAP 9.9 mmol/L (8-16); BLOOD UREA NITROGEN 11 mg/dL (7-26); BUN/CREATININE RATIO 13 (6-25); CALCIUM 7.6 mg/dL (8.4-10.2); CARBON DIOXIDE 25 mmol/L (22-29); CHLORIDE 107 mmol/L (98-107); CREATININE, SERUM 0.84 mg/dL (0.72-1.25); EST GLOMERULAR FILTRATION RATE > 60 ML/MIN (60-); GLUCOSE 116 mg/dL (74-118); POTASSIUM 3.9 mmol/L (3.5-5.1); SODIUM 138 mmol/L (136-145)
[2020-03-02 07:19] LABS: CHOL/HDL RATIO 2.6 (3.9-4.7); MAGNESIUM 1.7 MG/DL (1.3-2.1)
[2020-03-02 07:39] LABS: THYROID STIMULATING HORMONE 3.096 uIU/mL (0.350-4.940)
[2020-03-02] MEDS: CEFTRIAXONE SOD 1 GM/NS 50 ML 50 ML IV SCH (08:30)
[2020-03-02] MEDS: PANTOPRAZOLE 40 MG 10ML VIAL IV SCH (08:30)
[2020-03-02] MEDS: FAMOTIDINE 20 MG/2 ML VIAL IV SCH ×2 (08:35→17:14)
[2020-03-02] MEDS: DEXTROSE 5%/LACTATED RINGERS 1,000 ML IV SCH ×3 (09:48→18:43)
--- NOTE | 2020-03-02 10:23 | NUR ---
BLOOD PRESSURE, ELEVATED BP DR. MARTINEZ HERE TO SEE PATIENT.
--- NOTE | 2020-03-02 10:23 | NUR ---
Called, Dr. Goodwin to make him aware of cardiac consult. I also informed dr. Goodwin of elevated
[2020-03-02] MEDS ORDERED: HYDRALAZINE HCL 20 MG/ML VIAL IV PRN (10:45)
[2020-03-02] MEDS: SODIUM CHLORIDE 0.9% 250ML IRRIG IR SCH ×3 (11:21→23:54)
[2020-03-02] MEDS ORDERED: ONDANSETRON HCL INJ 2MG/ML 2ML 2 MG/ML VIAL IV PRN (11:30)
--- NOTE | 2020-03-02 16:35 | Consultation ---
DATE OF CONSULTATION: 03/02/2020 Cardiac Consultation REASON FOR CONSULTATION: Hypertension, evaluate cardiac status. HISTORY OF PRESENT ILLNESS: An 84-year-old gentleman who was admitted through the emergency room with severe sudden onset of severe epigastric pain. CT scan diagnostic of small bowel obstruction. The patient had small bowel resection urgently. The patient currently still having pain, but his abdominal pain is by far much better. His NG to suction. It was noted the blood pressure as high as 190. I visited the patient home. He said he does have history of hypertension and hyperlipidemia and prostate problem. Regarding his hypertension, he is to be on lisinopril 10 mg a day, but he stopped that because his blood pressure is low in the 110. He is not taking that for sometime. He is not taking any medication for his prostate. He had surgery already and he feels better. He take aspirin 81 mg a day and pravastatin 20 mg a day. Prior to this illness, he noted in the last two years when he does physical activity gets tired quickly and he cannot finish his lawn the way he used to do it fast and efficiently. He attributed that to old age. There is no prior myocardial infarction. There is easy fatigability shortness breath on exertion and early class three. No orthopnea. No paroxysmal nocturnal dyspnea. PAST MEDICAL HISTORY: 1. Difficulty hearing. 2. Hypertension, currently on no medications. 3. Hyperlipidemia. 4. Prostate problem. 5. Status post prostatic procedure. REVIEW OF SYSTEMS: Extensive to all systems, will be summarized for clarity. GENERAL: The patient was having chills with this acute illness and he was not feeling well at all. HEENT: Very difficulty hearing. CARDIAC AND PULMONARY: As per above. GI: As per acute illness. Sudden onset of severe abdominal pain. : His urine is by far much better and he is able to pass urine without difficulty. No hematuria, no dysuria. MUSCULOSKELETAL: No back pain. No leg pain. NEUROLOGICAL: Beside hard of hearing, there is no seizure or weakness. HEMATOLOGY: No easy bruising or bleeding. ENDOCRINE: No diabetes mellitus. 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 He smokes 2-3 cigars per week. He drinks two alcohol drinks per night. He does not use any drugs. ALLERGIES: NONE. HOME MEDICATIONS: 1. Aspirin 81 mg a day. 2. Pravastatin 20 mg a day, and did not take lisinopril 10 mg for long time. FAMILY HISTORY: Both father and mother of old age 87 and 97 respectively. He does not have any brother. He lost one of his three sister at old age for old age in her almost 90. He does have one child and he does have several grandchildren. PHYSICAL EXAMINATION: VITAL SIGNS: Height of 6 feet. Weight of 160 pounds. Blood pressure is currently 170/70, heart rate of 100, respiratory rate of 18. HEENT: NG to suction. NECK: No elevation of jugular venous pulsation. No thyromegaly. No lymphadenopathy. CHEST: Decreased air entry in bases with crackles. HEART: PMI 5th left intercostal space. Normal first and second heart sound. ABDOMEN: Dressing in place. No bowel sounds at distention noted. EXTREMITIES: No cyanosis, no clubbing, no edema. No signs of deep venous thrombosis. NEUROLOGIC: Awake, alert. No motor or sensory deficit. The major abnormality is he cannot hear and he is using hearing aid. LABORATORY DATA: Sodium of 138, potassium 3.9, BUN of 11, creatinine of 0.8, bicarb of 25, white blood cell count of 14.3, hemoglobin 10.3, hematocrit 31%, and platelet count of 248,000. Chest x-ray showed no abnormality. Left subclavian catheter triple-lumen, which was inserted during this admission. CT abdomen remarkable for small bowel obstruction. Old celiac SMA and OMAIRA are patent. The right renal got calcified plaque. The left renal is patent. 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 IMPRESSION AND PLAN: 1. Small bowel obstruction, status post surgical intervention. 2. History of hypertension, not currently on medication. 3. Hypercholesteremia. 4. Prostate, status post several prostate surgery. 5. 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 6. Difficulty hearing. 7. Prior to this illness, progressive shortness of breath, possible coronary artery disease of possible angina equivalent. From a cardiac point of view, patient is hemodynamically stable. He tolerated his surgery, would recommend hydralazine p.r.n. We will check an EKG and will check an echocardiogram. We will follow the patient's progression with you. Case discussed with nursing staff. MD KAVITHA Pan/ERICA /[id number]
[2020-03-02] MEDS: METOPROLOL TARTRATE INJ 1 MG/ML VIAL IV PRN (17:14)
--- NOTE | 2020-03-02 18:03 | NUR ---
Nutrition Intervention Note RD Recommendation(s) for Physician: - ADAT to goal of GI Soft - Recommend Ensure Clear TID when Clear liquid diet initiated Plan of Care: RD following, monitoring for tolerance and adequacy Nutrition reason for involvement: MST2 RD Assessment 03/02: 84 YOM admitted for hernia repair requiring ex lap and bowel resection yesterday. Pt evaluated today per MST2 screen at admit. Attempted to call pt x 2, no answer. Noted plan for additional surgery today per MD notes. Pt with onset of symptoms day of admit. Pt currently NPO with NGT to LIWS, output noted per chart. Unable to obtain hx from pt at this time. Chart reviewed. Will continue to monitor. Principal Problems/Diagnoses: internal hernia PMH: HTN, HLD, appendectomy GI: No BM recorded, +NGT to LIWS- 300 ml output this am Skin: abdominal incision Labs: 03/02: Na 138, K 3.9, BUN 11, Cr 0.84, Gluc 116, Phos 2, Mg 1.7 Meds: abx, dilaudid, protonix, zofran IV/Drips: D5LR at 125 ml/hr Ht: 72 in Wt: 160 lbs BMI: 21.7 kg/m3 IBW: 178 lbs Malnutrition Evaluation (03/02/20) Unable to complete assessment, will re-evaluate on follow up. Intake adequacy: VIRAJ Wt loss: VIRAJ Fat loss: VIRAJ Muscle loss: VIRAJ Edema: none Functional status: not assessed Nutrition Prescription (Diet Order): NPO Estimated Nutritional Needs: Calories: 5007-2639 (25-30kcal/kg/d) Weight used: CBW Protein: 73-109 (1-1.5g/kg/d) Weight used: CBW Diet Adequacy: Not meeting calorie needs, Not meeting protein needs Tolerance: tolerance pending Diet Education Needs Assessment: Diet education not indicated. Nutrition Care Level: Moderate Nutrition Diagnosis: Inadequate energy and protein intake related to current medical conditions (s/p small bowel resection) as evidenced by NPO with NGT to LIWS. Goal: Patient will meet 75-100% of estimated needs by follow up Progress: N/A Interventions: fiber modified diet, liquid supplement, recommend modifications Monitoring/Evaluation: Total energy intake, Total protein intake, Modified diet, Weight change Signed: Gi Winter RD, LD, [facility]
--- NOTE | 2020-03-02 19:25 | NUR ---
Pt. is alert and oriented x3. Respirations are even and unlabored. IV of D5LR infusing into his L subclavian central line at 125cc/hr. No redness or edema noted at site. NG tube is patent and intact connected to low suction and draining brown drainage. Abd. dressing is clean,dry,intact. Daley catheter is patent and intact draining light ilya urine.
--- NOTE | 2020-03-02 20:10 | NUR ---
Instructed pt. to do his Incentive spirometry 7-10 repetitions at least every 2hrs while awake and explained to him the importance for him to do this.
[2020-03-03] VITALS (7 sets, daily range): BP systolic 139–164; BP diastolic 80–111
[2020-03-03] MEDS: HYDROMORPHONE 1MG/1ML INJ IV PRN ×2 (02:14→20:18)
[2020-03-03] MEDS: SODIUM CHLORIDE 0.9% 250ML IRRIG IR SCH ×4 (06:16→20:03)
[2020-03-03] MEDS: METRONIDAZOLE 500MG/NS 100ML 100 ML IV SCH ×3 (06:16→18:01)
[2020-03-03 06:22] LABS: ALANINE AMINOTRANSFERASE 12 IU/L (0-55); ALBUMIN 3.1 g/dL (3.5-5.0); ALBUMIN/GLOBULIN RATIO 1.6 (0.8-2.0); ALKALINE PHOSPHATASE 48 IU/L (40-150); ANION GAP 11.7 mmol/L (8-16); BLOOD UREA NITROGEN 8 mg/dL (7-26); BUN/CREATININE RATIO 10 (6-25); CALCIUM 7.6 mg/dL (8.4-10.2); CARBON DIOXIDE 24 mmol/L (22-29); CHLORIDE 106 mmol/L (98-107); CREATININE, SERUM 0.79 mg/dL (0.72-1.25); EST GLOMERULAR FILTRATION RATE > 60 ML/MIN (60-); GLUCOSE 96 mg/dL (74-118); POTASSIUM 3.7 mmol/L (3.5-5.1); SODIUM 138 mmol/L (136-145)
[2020-03-03 06:23] LABS: BASOPHILS # (AUTO) 0.1 (0.0-0.1); BASOPHILS % 0.3 % (0.0-1.0); EOSINOPHILS # (AUTO) 0.1 (0.0-0.4); EOSINOPHILS % 0.7 % (0.0-6.0); HEMATOCRIT 31.5 % (38.2-49.6); HEMOGLOBIN 10.3 g/dL (14.0-18.0); LYMPHOCYTES # (AUTO) 1.1 (1.0-3.2); LYMPHOCYTES % 7.3 % (18.0-39.1); MEAN CORPUSCULAR HEMOGLOBIN 30.2 pg (28-32); MEAN CORPUSCULAR HGB CONC 32.7 g/dL (31-35); MEAN CORPUSCULAR VOLUME 92.4 fL (81-99); MONOCYTES # (AUTO) 1.3 (0.2-0.8); MONOCYTES % 8.9 % (4.4-11.3); NEUTROPHILS # (AUTO) 12.4 (2.1-6.9); NEUTROPHILS % 82.2 % (38.7-80.0); PLATELET COUNT 253 x10e3/uL (140-360); RED BLOOD COUNT 3.41 x10e6/uL (4.3-5.7)
[2020-03-03 06:46] LABS: THYROID STIMULATING HORMONE 2.292 uIU/mL (0.350-4.940)
[2020-03-03] MEDS: DEXTROSE 5%/LACTATED RINGERS 1,000 ML IV SCH ×3 (08:00→17:12)
[2020-03-03] MEDS: PANTOPRAZOLE 40 MG 10ML VIAL IV SCH (08:51)
[2020-03-03] MEDS: FAMOTIDINE 20 MG/2 ML VIAL IV SCH ×2 (09:03→18:01)
[2020-03-03] MEDS ORDERED: FENTANYL CITRATE/PF 100MCG/2 ML INJ ONE ×2 (11:21→13:13)
--- NOTE | 2020-03-03 12:18 | NUR ---
patient just returned from pacu s/p Exlap with bowel resection. midline incision close with dressing. no s/s of bleeding noted. ng tube is to wall suction with light brown secretion. patient denies pain at this time.
--- NOTE | 2020-03-03 12:18 | NUR ---
Infectious disease consultation Patient seen and examined chart reviewed n 84-year-old gentleman who was admitted through the emergency room with severe sudden onset of severe epigastric pain. CT scan diagnostic of small bowel obstruction. The patient had small bowel resection urgently. Patient was found to have ischemic gut underwent surgery I was asked to see him today to make a recommendation terms of antibiotic. The patient currently still having pain, but his abdominal pain is by far much better. His NG to suction. It was noted the blood pressure as high as 190. patient is currently lying in bed comfortably His past medical history past surgical history PAST MEDICAL HISTORY: 1. Difficulty hearing. 2. Hypertension, currently on no medications. 3. Hyperlipidemia. 4. Prostate problem. 5. Status post prostatic procedure. social history there is no smoking or drug abuse or call abuse REVIEW OF SYSTEMS: Extensive to all systems, All negative except abdominal pain as mentioned above and GENERAL: The patient was having chills with this acute illness and he was not feeling well at all. HEENT: Very difficulty hearing. CARDIAC AND PULMONARY: As per above. GI: As per acute illness. Sudden onset of severe abdominal pain. : His urine is by far much better and he is able to pass urine without difficulty. No hematuria, no dysuria. MUSCULOSKELETAL: No back pain. No leg pain. NEUROLOGICAL: Beside hard of hearing, there is no seizure or weakness. HEMATOLOGY: No easy bruising or bleeding. ENDOCRINE: No diabetes mellitus. 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 He smokes 2-3 cigars per week. He drinks two alcohol drinks per night. He does not use any drugs. ALLERGIES: NONE. HOME MEDICATIONS: 1. Aspirin 81 mg a day. 2. Pravastatin 20 mg a day, and did not take lisinopril 10 mg for long time. FAMILY HISTORY: Both father and mother of old age 87 and 97 respectively. He does not have any brother. He lost one of his three sister at old age for old age in her almost 90. He does have one child and he does have several grandchildren. PHYSICAL EXAMINATION:patient currently alert oriented does not seem to be in acute distress vital stable afebrile VITAL SIGNS: Height of 6 feet. Weight of 160 pounds. Blood pressure is currently 170/70, heart rate of 100, respiratory rate of 18. HEENT: NG to suction. normocephalic not pale not icteric NECK: No elevation of jugular venous pulsation. No thyromegaly. No lymphadenopathy. CHEST: Decreased air entry in bases with crackles. HEART: PMI 5th left intercostal space. Normal first and second heart sound. ABDOMEN: Dressing in place. No bowel sounds at distention noted. EXTREMITIES: No cyanosis, no clubbing, no edema. No signs of deep venous thrombosis. NEUROLOGIC: Awake, alert. No motor or sensory deficit. The major abnormality is he cannot hear and he is using hearing aid. lab data review chart reviewed LABORATORY DATA: Sodium of 138, potassium 3.9, BUN of 11, creatinine of 0.8, bicarb of 25, white blood cell count of 14.3, hemoglobin 10.3, hematocrit 31%, and platelet count of 248,000. Chest x-ray showed no abnormality. Left subclavian catheter triple-lumen, which was inserted during this admission. CT abdomen remarkable for small bowel obstruction. Old celiac SMA and OMAIRA are patent. The right renal got calcified plaque. The left renal is patent. 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 IMPRESSION AND PLAN: 1. Small bowel obstruction, status post surgical intervention. agree with Rocephin and agree with Flagyl recheck CBC to check an panel and agree with nothing by mouth DVT prophylaxis 2. History of hypertension, cardiology is following. 3. Hypercholesteremia.cardiology is following 4. Prostate, status post several prostate surgery. 5. 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 6. Difficulty hearing. continue as ordered we will follow with you
[2020-03-03] MEDS: CEFTRIAXONE SOD 1 GM/NS 50 ML 50 ML IV SCH (12:33)
--- NOTE | 2020-03-03 12:59 | Operative Report ---
DATE OF PROCEDURE: 03/03/2020 SURGEON: Nathan Myers MD PREOPERATIVE DIAGNOSIS: Status post exploratory laparotomy and resection of necrotic gangrenous small bowel. POSTOPERATIVE DIAGNOSIS: Status post exploratory laparotomy and resection of necrotic gangrenous small bowel. PROCEDURE PERFORMED: Exploratory laparotomy and reanastomosis of small bowel with [id number] functional end-to-end staple anastomosis. DIRECTOR DIGITAL CATALOGUE: NEAL Lau. ESTIMATED BLOOD LOSS: Minimal. DRAINS: None. COMPLICATIONS: None. INDICATION AND FINDINGS: This patient is a pleasant hard of hearing 84-year-old male, who two days ago had undergone laparotomy, resection of gangrenous bowel, now is admitted for reanastomosis after ascertaining there was no further gangrene. INTRAOPERATIVE FINDINGS: There was no evidence of any further gangrene or bowel necrosis. The small bowel segments were anastomosed. The proximal segment was in the jejunum. DESCRIPTION OF PROCEDURE: With the patient lying on the operative table in the supine position after administration of general anesthesia, he was prepped and draped for exploratory laparotomy. The abdomen was entered through the same incision. After we removed the jennifer and one Prolene put into the abdomen with the finding of murky fluid. We irrigated the wound and the operative field and then we found the two previously resected segments of small bowel in the area of the jejunum that were viable. There was no further gangrenous process. We then reanastomosed the two segments using a [id number] functional end-to-end anastomosis using the MIRANDA #75 stapler. After we reanastomosed the two segments, we closed the rent in the corners of the small bowel with the TA-60 stapler. We then reinforced the staple line with 3-0 silk. We placed two stay sutures distal to the staple line to prevent tension in that location and then we closed the rent in the mesentery with 2-0 running Vicryl. Both the anastomosis appeared to be widely patent with good blood flow. We then irrigated the abdomen and then we closed the wound in two layers using 0 Vicryl for the peritoneum and a running 1 Vicryl for the fascia. The subcutaneous tissues were copiously irrigated and then closed with 2-0 Vicryl and the skin was closed using jennifer. Sterile dressing was applied. The patient tolerated the procedure well and was taken to recovery room in stable condition. At the end of the procedure, I informed the patient's son of the intraoperative findings. MD ALEX Dumont/ANGELLAL /[id number]
[2020-03-03] MEDS ORDERED: GLYCOPYRROLATE INJ 0.2 MG/ML VIAL ONE (19:33)
[2020-03-03] MEDS ORDERED: ONDANSETRON HCL INJ 2MG/ML 2ML 2 MG/ML VIAL ONE (19:33)
[2020-03-03] MEDS ORDERED: PROPOFOL IV EMULSION 10 MG/ML 20 ML VIAL ONE (19:33)
[2020-03-03] MEDS ORDERED: CEFAZOLIN SOD 1 GM VIAL ONE (19:33)
[2020-03-03] MEDS ORDERED: LIDOCAINE HCL 2% LOCAL INJ 5 ML SDV VIAL INJ ONE (19:33)
[2020-03-03] MEDS ORDERED: NEOSTIGMINE 1 MG/ML 10ML VIAL ONE (19:33)
[2020-03-03] MEDS ORDERED: SEVOFLURANE INHAL SOLN 250 ML PEN BTL ONE (19:33)
[2020-03-03] MEDS ORDERED: ROCURONIUM BROMIDE 10 MG/ML 5ML VIAL IV ONE (19:33)
[2020-03-03] MEDS ORDERED: DEXAMETHASONE SOD PHOS INJ 4 MG/ML VIAL ONE (19:33)
[2020-03-03] MEDS ORDERED: LABETALOL HCL 5 MG/ML 20ML VIAL ONE (19:33)
[2020-03-04] VITALS (8 sets, daily range): BP systolic 138–156; BP diastolic 59–86
[2020-03-04] MEDS: SODIUM CHLORIDE 0.9% 250ML IRRIG IR SCH ×7 (00:19→23:15)
[2020-03-04] MEDS: METRONIDAZOLE 500MG/NS 100ML 100 ML IV SCH ×4 (00:22→18:48)
[2020-03-04] MEDS: DEXTROSE 5%/LACTATED RINGERS 1,000 ML IV SCH (03:40)
[2020-03-04] MEDS: HYDROMORPHONE 1MG/1ML INJ IV PRN ×2 (03:40→06:51)
[2020-03-04 06:44] LABS: BASOPHILS % 0.1 % (0.0-1.0); EOSINOPHILS # (AUTO) 0.1 (0.0-0.4); EOSINOPHILS % 0.5 % (0.0-6.0); HEMATOCRIT 28.5 % (38.2-49.6); HEMOGLOBIN 9.3 g/dL (14.0-18.0); LYMPHOCYTES # (AUTO) 1.1 (1.0-3.2); LYMPHOCYTES % 7.3 % (18.0-39.1); MEAN CORPUSCULAR HGB CONC 32.6 g/dL (31-35); MEAN CORPUSCULAR VOLUME 91.9 fL (81-99); MONOCYTES # (AUTO) 1.3 (0.2-0.8); NEUTROPHILS # (AUTO) 13.1 (2.1-6.9); NEUTROPHILS % 83.5 % (38.7-80.0); PLATELET COUNT 259 x10e3/uL (140-360); RED CELL DISTRIBUTION WIDTH 12.9 % (11.7-14.4)
[2020-03-04 07:26] LABS: ANION GAP 8.7 mmol/L (8-16); BLOOD UREA NITROGEN 8 mg/dL (7-26); BUN/CREATININE RATIO 10 (6-25); CALCIUM 7.2 mg/dL (8.4-10.2); CARBON DIOXIDE 25 mmol/L (22-29); CHLORIDE 109 mmol/L (98-107); CREATININE, SERUM 0.77 mg/dL (0.72-1.25); EST GLOMERULAR FILTRATION RATE > 60 ML/MIN (60-); GLUCOSE 113 mg/dL (74-118); POTASSIUM 3.7 mmol/L (3.5-5.1); SODIUM 139 mmol/L (136-145)
[2020-03-04] MEDS: FAMOTIDINE 20 MG/2 ML VIAL IV SCH ×2 (08:37→17:00)
[2020-03-04] MEDS: PANTOPRAZOLE 40 MG 10ML VIAL IV SCH (08:37)
[2020-03-04] MEDS: CEFTRIAXONE SOD 1 GM/NS 50 ML 50 ML IV SCH (08:37)
[2020-03-04] MEDS: KCL 20MEQ/.9 SOD CHL 1,000 ML IV SCH (11:09)
[2020-03-04] MEDS: METOPROLOL TARTRATE INJ 1 MG/ML VIAL IV SCH ×2 (12:06→21:24)
--- NOTE | 2020-03-04 12:57 | NUR ---
Daley was d/c as ordered by Dr Myers at 0915. patient is due to void.
--- NOTE | 2020-03-04 19:33 | Progress Note ---
DATE: SUBJECTIVE: The patient is seen and evaluated. Available labs and notes reviewed. REVIEW OF SYSTEMS: The patient wants NG tube to be removed. He says his throat hurts, but he understands that he needs it and he is going to hold onto it for now and he complains that he has not eaten and he also understands why he is not eating. He has not had any bowel movement or passing gas. No chest pain or shortness of breath. No headache or rash. MEDICATIONS: Reviewed. From ID point of view, the patient is on Flagyl and Rocephin. LABORATORY STUDIES: White count 15.65. Overall, no significant change. Hemoglobin 9.3, platelet 259. Sodium 139, potassium 3.7, creatinine 0.77. COVID-19 PCR not detected on 03/01. MICROBIOLOGY: Blood culture negative, 72 hours. RADIOLOGY: No new radiology studies available. PHYSICAL EXAMINATION: VITAL SIGNS: Temperature 98.7, pulse 74, respirations 16, and blood pressure 156/78. GENERAL: Alert and oriented, no acute distress. CV: S1-S2. CHEST: Equal expansion. Clear to auscultation. No acute distress. ABDOMEN: Surgical wound is dressed. Discomfort on palpation, but no obvious acute finding. HEENT: Moist. No pallor. No JVD. With nasogastric tube for suction. EXTREMITIES: No significant edema. ASSESSMENT AND PLAN: 1. Small bowel obstruction. The patient is status post surgery. 2. Hypertension. 3. Hyperlipidemia. 4. Abdominal aortic aneurysm. 5. Poor hearing. Continue with antibiotics as mentioned. Monitor the patient clinically. Follow up with the Wound Care and wound healing process, remains with nasogastric tube for suction. Further management of this patient is based on daily findings on laboratory and physical examination. Clinically, no acute distress. Alert and oriented x3. Dictated by Rigoberto Lui PA-C (Al) Wendi Varghese MD /MODL /[id number]
[2020-03-05] VITALS (8 sets, daily range): BP systolic 143–166; BP diastolic 71–93
[2020-03-05] MEDS: KCL 20MEQ/.9 SOD CHL 1,000 ML IV SCH ×3 (01:00→15:47)
[2020-03-05] MEDS: SODIUM CHLORIDE 0.9% 250ML IRRIG IR SCH ×4 (03:15→15:47)
[2020-03-05] MEDS: METRONIDAZOLE 500MG/NS 100ML 100 ML IV SCH ×4 (03:19→17:05)
[2020-03-05 04:48] LABS: BASOPHILS % 0.3 % (0.0-1.0); EOSINOPHILS # (AUTO) 0.3 (0.0-0.4); EOSINOPHILS % 3.1 % (0.0-6.0); HEMATOCRIT 29.8 % (38.2-49.6); HEMOGLOBIN 9.6 g/dL (14.0-18.0); LYMPHOCYTES # (AUTO) 0.9 (1.0-3.2); LYMPHOCYTES % 8.2 % (18.0-39.1); MEAN CORPUSCULAR HEMOGLOBIN 30.4 pg (28-32); MEAN CORPUSCULAR HGB CONC 32.2 g/dL (31-35); MEAN CORPUSCULAR VOLUME 94.3 fL (81-99); MONOCYTES # (AUTO) 0.9 (0.2-0.8); MONOCYTES % 8.4 % (4.4-11.3); NEUTROPHILS # (AUTO) 8.9 (2.1-6.9); NEUTROPHILS % 79.7 % (38.7-80.0); PLATELET COUNT 281 x10e3/uL (140-360); RED BLOOD COUNT 3.16 x10e6/uL (4.3-5.7); RED CELL DISTRIBUTION WIDTH 12.7 % (11.7-14.4)
[2020-03-05 05:15] LABS: ALANINE AMINOTRANSFERASE 10 IU/L (0-55); ALBUMIN 2.9 g/dL (3.5-5.0); ALBUMIN/GLOBULIN RATIO 1.5 (0.8-2.0); ALKALINE PHOSPHATASE 41 IU/L (40-150); ANION GAP 11.8 mmol/L (8-16); BLOOD UREA NITROGEN 11 mg/dL (7-26); BUN/CREATININE RATIO 14 (6-25); CALCIUM 7.4 mg/dL (8.4-10.2); CARBON DIOXIDE 23 mmol/L (22-29); CHLORIDE 109 mmol/L (98-107); EST GLOMERULAR FILTRATION RATE > 60 ML/MIN (60-); GLUCOSE 88 mg/dL (74-118); MAGNESIUM 1.8 MG/DL (1.3-2.1); POTASSIUM 3.8 mmol/L (3.5-5.1); SODIUM 140 mmol/L (136-145)
[2020-03-05] MEDS: METOPROLOL TARTRATE INJ 1 MG/ML VIAL IV SCH ×2 (06:07)
--- NOTE | 2020-03-05 08:02 | NUR ---
DR. MARIZA STEARNS CALLED, HE STATE, " CLAMP NGT TO AND I WILL TAKE IT OUT LATER."
[2020-03-05] MEDS: PANTOPRAZOLE 40 MG 10ML VIAL IV SCH (10:24)
[2020-03-05] MEDS: CEFTRIAXONE SOD 1 GM/NS 50 ML 50 ML IV SCH (10:25)
[2020-03-05] MEDS: FAMOTIDINE 20 MG/2 ML VIAL IV SCH ×2 (10:25→17:05)
[2020-03-05] MEDS: METOPROLOL TARTRATE 25 MG TAB PO SCH ×2 (13:26→21:32)
--- NOTE | 2020-03-05 14:15 | NUR ---
INFECTIOUS DISEASE PROGRESS NOTE DR. DERECK ROONEY HPI: 84-year-old gentleman who was admitted through the emergency room with severe sudden onset of severe epigastric pain. CT scan diagnostic of small bowel obstruction. The patient had small bowel resection urgently. 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 Difficulty hearing. 2. Hypertension, currently on no medications. 3. Hyperlipidemia. 4. Prostate problem. 5. Status post prostatic procedure. social history there is no smoking or drug abuse or call abuse REVIEW OF SYSTEMS: Extensive to all systems, All negative except abdominal pain as mentioned above and GENERAL: The patient was having chills with this acute illness and he was not feeling well at all. HEENT: Very difficulty hearing. CARDIAC AND PULMONARY: As per above. GI: As per acute illness. Sudden onset of severe abdominal pain. : His urine is by far much better and he is able to pass urine without difficulty. No hematuria, no dysuria. MUSCULOSKELETAL: No back pain. No leg pain. NEUROLOGICAL: Beside hard of hearing, there is no seizure or weakness. HEMATOLOGY: No easy bruising or bleeding. ENDOCRINE: No diabetes mellitus. PHYSICAL EXAMINATION: VITAL SIGNS: per chart HEENT: NG to suction. normocephalic not pale not icteric NECK: No elevation of jugular venous pulsation. No thyromegaly. No lymphadenopathy. CHEST: Decreased air entry in bases with crackles. HEART: PMI 5th left intercostal space. Normal first and second heart sound. ABDOMEN: Dressing in place. No bowel sounds at distention noted. EXTREMITIES: No cyanosis, no clubbing, no edema. No signs of deep venous thrombosis. NEUROLOGIC: Awake, alert. No motor or sensory deficit. The major abnormality is he cannot hear and he is using hearing aid. LABORATORY DATA: per chart IMPRESSION AND PLAN: 1. Small bowel obstruction, status post surgical intervention. 2. History of hypertension, cardiology is following. 3. Hypercholesteremia.cardiology is following 4. Prostate, status post several prostate surgery. 5. 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 6. Difficulty hearing. 7. Leukocytosis, improvement agree with Rocephin agree with Flagyl recheck CBC and CMP agree with nothing by mouth DVT prophylaxis Cheyenne Cary MSN, WELDER TACK, AGACNP-BC Dereck Rooney M.D
--- NOTE | 2020-03-05 16:01 | NUR ---
Nutrition Intervention Note RD Recommendation(s) for Physician: - Recommend advancing to goal of GI soft diet as medically appropriate - Recommend Ensure Clear TID when Clear liquid diet initiated Plan of Care: RD following, monitoring for tolerance and adequacy Nutrition reason for involvement: follow up RD Assessment 03/05: Follow up. Pt remains NPO with NGT to LIWS. Pt reports he used to weigh 170-175 lbs many years ago. Pt currently has a a weight of 160 lbs in chart. There are no reports of decreased appetite prior to admission. Recommend advancing diet when medically appropriate. Will continue to monitor 03/02: 84 YOM admitted for hernia repair requiring ex lap and bowel resection yesterday. Pt evaluated today per MST2 screen at admit. Attempted to call pt x 2, no answer. Noted plan for additional surgery today per MD notes. Pt with onset of symptoms day of admit. Pt currently NPO with NGT to LIWS, output noted per chart. Unable to obtain hx from pt at this time. Chart reviewed. Will continue to monitor. Principal Problems/Diagnoses: internal hernia PMH: HTN, HLD, appendectomy GI: No BM recorded, soft, non-tender abdomen Skin: abdominal incision Labs: 03/05: Na 140, K 3.8, BUN 11, Cr 0.80, Glu 88, Ca 7.4 03/02: Na 138, K 3.9, BUN 11, Cr 0.84, Gluc 116, Phos 2, Mg 1.7 Meds: metoprolol, antibiotic, pepcid, protonix, zofran, Ht: 72 in Wt: 160 lbs BMI: 21.7 kg/m3 IBW: 178 lbs Malnutrition Evaluation (03/02/20) Unable to complete assessment, will re-evaluate on follow up. Intake adequacy: VIRAJ Wt loss: VIRAJ Fat loss: VIRAJ Muscle loss: VIRAJ Edema: none Functional status: not assessed Nutrition Prescription (Diet Order): NPO Estimated Nutritional Needs: Calories: 1635-7730 (25-30kcal/kg/d) Weight used: CBW Protein: 73-109 (1-1.5g/kg/d) Weight used: CBW Diet Adequacy: Not meeting calorie needs, Not meeting protein needs Tolerance: tolerance pending Diet Education Needs Assessment: Diet education not indicated. Nutrition Care Level: Moderate Nutrition Diagnosis: Inadequate energy and protein intake related to current medical conditions (s/p small bowel resection) as evidenced by NPO with NGT to LIWS. Goal: Patient will meet 75-100% of estimated needs by follow up Progress: not progressing Interventions: fiber modified diet, liquid supplement Monitoring/Evaluation: Total energy intake, Total protein intake, Modified diet, Weight change Signed: Katy Mathews RD, LD
--- NOTE | 2020-03-05 19:21 | Progress Note ---
DATE: 03/05/2020 CONSULTING PHYSICIANS: 1. Dr. Wendi Varghese with Infectious Disease. 2. Dr. Nathan Myers with Surgery. 3. Dr. Rashad Goodwin, with Cardiology. SUBJECTIVE: The patient is supine in bed with head of bed elevated. Dr. Myers pulled out the NG tube earlier this afternoon. The patient has minimal pain at the abdomen. No nausea or vomiting. Remains n.p.o. The patient states he is not having any flatus. OBJECTIVE: VITAL SIGNS: Temperature 98.6, pulse 82, blood pressure 153/80, respirations 22, oxygen saturation 100%. GENERAL: No acute distress. LUNGS: Clear to auscultation. Respiratory pattern even nonlabored. No supplemental oxygen. HEENT: EOMI. Dry mucous membranes. NECK: Supple. No lymphadenopathy. No thyromegaly or JVD noted. CARDIOVASCULAR: Regular rate and rhythm. No murmur. Left subclavian central venous catheter with normal saline plus 20 mEq potassium chloride infusing at 100 mL an hour. ABDOMEN: Bowel sounds are positive. Soft. Minimal pain to gentle palpation. EXTREMITIES: No pitting edema. No clubbing, cyanosis, or signs of DVT. NEUROLOGICAL: GCS 15. Nonfocal. LABORATORY DATA: WBCs 11.12, hemoglobin 9.6, hematocrit 29.8, platelets 281, neutrophils 79.7%. Sodium 140, potassium 3.8, chloride 109, CO2 of 23, anion gap 11.8, BUN 11, creatinine 0.8, estimated GFR greater than 60, glucose 88, calcium 7.4, magnesium 1.8, total bilirubin 0.5, AST 16, ALT 10, alkaline phosphatase 41, total protein 4.9, albumin 2.9. IMAGING: No new imaging. Per telemetry, sinus rhythm, heart rate 73. ASSESSMENT/PLAN: 1. Ischemic bowel, status post exploratory lap with bowel resection on 03/01, status post second-look exploratory laparotomy with reanastomosis of small bowel on 03/03. Continue Flagyl and Rocephin IV antibiotics per Infectious Disease. Pain control, IV hydration, also appreciate recommendations from surgery. The patient remains n.p.o. 2. Controlled hypertension, 153/80. Continue p.r.n. IV metoprolol tartrate while n.p.o., monitor. 3. Hyperlipidemia, hold Pravachol while n.p.o. 4. Prophylaxis, Protonix and Pepcid, SCDs. 5. Inpatient, billing code [id number]. 6. Time spent 35 minutes. Dictated by Santo Medley, NEEDLE GRADER MD VEDA Nixon/MODL /[id number]
[2020-03-06] VITALS (8 sets, daily range): BP systolic 130–157; BP diastolic 76–80
[2020-03-06] MEDS: METRONIDAZOLE 500MG/NS 100ML 100 ML IV SCH ×4 (06:04→17:34)
[2020-03-06] MEDS: METOPROLOL TARTRATE 25 MG TAB PO SCH ×3 (06:04→21:02)
[2020-03-06] MEDS: KCL 20MEQ/.9 SOD CHL 1,000 ML IV SCH ×2 (07:18→12:49)
[2020-03-06 07:23] LABS: BASOPHILS % 0.3 % (0.0-1.0); EOSINOPHILS # (AUTO) 0.3 (0.0-0.4); EOSINOPHILS % 2.9 % (0.0-6.0); HEMATOCRIT 27.1 % (38.2-49.6); HEMOGLOBIN 8.9 g/dL (14.0-18.0); LYMPHOCYTES # (AUTO) 0.9 (1.0-3.2); LYMPHOCYTES % 7.9 % (18.0-39.1); MEAN CORPUSCULAR HEMOGLOBIN 30.2 pg (28-32); MEAN CORPUSCULAR HGB CONC 32.8 g/dL (31-35); MEAN CORPUSCULAR VOLUME 91.9 fL (81-99); MONOCYTES # (AUTO) 1.1 (0.2-0.8); MONOCYTES % 9.9 % (4.4-11.3); NEUTROPHILS # (AUTO) 8.5 (2.1-6.9); NEUTROPHILS % 78.4 % (38.7-80.0); PLATELET COUNT 288 x10e3/uL (140-360); RED BLOOD COUNT 2.95 x10e6/uL (4.3-5.7); RED CELL DISTRIBUTION WIDTH 12.9 % (11.7-14.4)
[2020-03-06 07:40] LABS: ANION GAP 11.9 mmol/L (8-16); BLOOD UREA NITROGEN 13 mg/dL (7-26); BUN/CREATININE RATIO 18 (6-25); CARBON DIOXIDE 21 mmol/L (22-29); CHLORIDE 111 mmol/L (98-107); CREATININE, SERUM 0.72 mg/dL (0.72-1.25); EST GLOMERULAR FILTRATION RATE > 60 ML/MIN (60-); GLUCOSE 81 mg/dL (74-118); POTASSIUM 3.9 mmol/L (3.5-5.1); SODIUM 140 mmol/L (136-145)
[2020-03-06] MEDS ORDERED: POTASSIUM PHOSPHATE 15 MM in SODIUM CHLORIDE 0.9% 250ML 250 ML IV ONE ×2 (08:00→20:15)
[2020-03-06] MEDS: CEFTRIAXONE SOD 1 GM/NS 50 ML 50 ML IV SCH (09:48)
[2020-03-06] MEDS: PANTOPRAZOLE 40 MG 10ML VIAL IV SCH (09:48)
[2020-03-06] MEDS: FAMOTIDINE 20 MG/2 ML VIAL IV SCH ×2 (09:48→17:34)
--- NOTE | 2020-03-06 13:29 | NUR ---
INFECTIOUS DISEASE PROGRESS NOTE DR. DERECK ROONEY REVIEW OF SYSTEMS: Extensive to all systems, All negative except abdominal pain as mentioned above and GENERAL: The patient was having chills with this acute illness and he was not feeling well at all. HEENT: Very difficulty hearing. CARDIAC AND PULMONARY: As per above. GI: As per acute illness. Sudden onset of severe abdominal pain. : His urine is by far much better and he is able to pass urine without difficulty. No hematuria, no dysuria. MUSCULOSKELETAL: No back pain. No leg pain. NEUROLOGICAL: Beside hard of hearing, there is no seizure or weakness. HEMATOLOGY: No easy bruising or bleeding. ENDOCRINE: No diabetes mellitus. PHYSICAL EXAMINATION: VITAL SIGNS: per chart HEENT: NG to suction. normocephalic not pale not icteric NECK: No elevation of jugular venous pulsation. No thyromegaly. No lymphadenopathy. CHEST: Decreased air entry in bases with crackles. HEART: PMI 5th left intercostal space. Normal first and second heart sound. ABDOMEN: Dressing in place. No bowel sounds at distention noted. EXTREMITIES: No cyanosis, no clubbing, no edema. No signs of deep venous thrombosis. NEUROLOGIC: Awake, alert. No motor or sensory deficit. The major abnormality is he cannot hear and he is using hearing aid. LABORATORY DATA: per chart IMPRESSION AND PLAN: 1. Small bowel obstruction, status post surgical intervention. 2. History of hypertension, cardiology is following. 3. Hypercholesteremia.cardiology is following 4. Prostate, status post several prostate surgery. 5. 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 6. Difficulty hearing. 7. Leukocytosis, improvement Rocephin Flagyl recheck CBC and CMP DVT prophylaxis advance diet if okay with surgery Cheyenne Cary MSN, HOSPITAL WARD CLERK, AGACNP-BC Dereck Rooney M.D
[2020-03-06] MEDS ORDERED: BISACODYL 10 MG SUPP PR ONE (16:00)
--- NOTE | 2020-03-06 21:00 | NUR ---
SPOKE WITH RAIMUNDO EDGE ABOUT POTASSIUM PHOSPHATE ORDER. UNAVAILABLE AT THIS TIME, OKAY TO RETIME FOR AM WHEN MEDICATION IS AVAILABLE.
--- NOTE | 2020-03-06 21:45 | Progress Note ---
DATE: SUBJECTIVE: The patient remains n.p.o. Abdominal pain currently 2/10 on a 0 to 10 pain scale when out of bed. He is having flatus. He has suppository today and a bowel movement, which he states was mediocre. No nausea or vomiting. NG tube was removed on 03/05. OBJECTIVE: VITAL SIGNS: Temperature 98.1, pulse 74, blood pressure 157/76, respirations 20, oxygen saturation 96%. GENERAL: Supine, head of bed elevated. No acute distress. LUNGS: Clear to auscultation. Respiratory pattern even and unlabored. No supplemental oxygen. HEENT: EOMI. NECK: Supple. CARDIOVASCULAR: Regular rate and rhythm. No murmur. Left subclavian central venous catheter. Normal saline plus 20 mEq. Potassium chloride infusing at 100 mL an hour. ABDOMEN: Bowel sounds positive. Soft, minimal pain to gentle palpation. EXTREMITIES: No pitting edema. No clubbing, cyanosis, or signs of DVT. NEUROLOGIC: GCS 15. Nonfocal. LABORATORY DATA: WBCs 10.79, hemoglobin 8.9, hematocrit 27.1, platelets 288. Neutrophils 78.4%. Sodium 140, potassium 3.9, chloride 111, CO2 of 21, anion gap 11.9. BUN 13, creatinine 0.72, estimated GFR greater than 60, glucose 81, calcium 7.0, phosphorus 2.0. IMAGING: No new imaging results. Per telemetry sinus rhythm, heart rate 68. ASSESSMENT AND PLAN: 1. 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 Continue Flagyl and Rocephin. IV antibiotics as per Infectious Disease. Recommendations, continue IV hydration and pain control, small BM today. The patient remains n.p.o. Appreciate recommendations from surgical team. 2. Controlled hypertension. Blood pressure 157/76 today. Continue p.r.n. IV metoprolol tartrate while n.p.o. Monitor blood pressure. 3. Hyperlipidemia, hold Pravachol while n.p.o. 4. Prophylaxis. Protonix and Pepcid, SCDs. Inpatient, billing code [id number] Time spent 35 minutes. Dictated by Santo Medley, RAIMUNDO MD VEDA Nixon/ANGELLAL /[id number]
[2020-03-07] VITALS (8 sets, daily range): BP systolic 143–159; BP diastolic 69–80
[2020-03-07] MEDS: METRONIDAZOLE 500MG/NS 100ML 100 ML IV SCH ×4 (00:26→17:16)
[2020-03-07] MEDS: KCL 20MEQ/.9 SOD CHL 1,000 ML IV SCH ×2 (00:26→17:17)
[2020-03-07] MEDS: METOPROLOL TARTRATE 25 MG TAB PO SCH ×3 (06:00→21:27)
[2020-03-07] MEDS: METOPROLOL TARTRATE INJ 1 MG/ML VIAL IV PRN (06:12)
[2020-03-07] MEDS ORDERED: POTASSIUM PHOSPHATE 15 MM in SODIUM CHLORIDE 0.9% 250ML 250 ML IV ONE ×2 (08:00→10:00)
[2020-03-07] MEDS: LISINOPRIL 10 MG TAB PO SCH (09:00)
[2020-03-07] MEDS: PANTOPRAZOLE 40 MG 10ML VIAL IV SCH (09:17)
[2020-03-07] MEDS: CEFTRIAXONE SOD 1 GM/NS 50 ML 50 ML IV SCH (09:17)
[2020-03-07] MEDS: FAMOTIDINE 20 MG/2 ML VIAL IV SCH ×2 (09:17→17:16)
--- NOTE | 2020-03-07 13:41 | NUR ---
Notified Dr.Hampel Rice that 5th serial urine is light red and no clots noted. Per patient cleared to discharge Addendum: 03/07/20 at 1345 by JOCELYN EM RN error
--- OUTSIDE RECORDS SUMMARY | 2020-03-07 14:31 | XMS REPORT | Continuity of Care Document ---
Author Author [facility] t Organization [facility] Address [address] [place] [address] Phone Unavailable Care Team Providers Care Item Processor Name Role Phone MD YOMI MCKEON PCP SABINE WALKER Attphys Unavailable KALEIGH BETTY Attphys Unavailable HAMPEL, AARON Attphys Unavailable SABINE WALKER Admphys Unavailable Payers Payer Name Policy Type Policy Number Effective Date Expiration Date Annmarie navarrete [facility] [id number] 2019 00:00:00 [facility] Medicare A & B [id number] 2002 00:00:00 [facility] Problems Condition Name Condition Details Condition Category Status Onset Date Resolution Date Last Treatment Date Treating Clinician Comments Source Internal hernia Problem Active [facility] Allergies, Adverse Reactions, Alerts This patient has no known allergies or adverse reactions. Social History Social Habit Start Date Stop Date Quantity Comments Source Sex Assigned At 1935 00:00:00 1935 00:00:00 Male [facility] Medications Ordered Medication Name Filled Medication Name Start Date Stop Da te Current Medication? Ordering Clinician Indication Dosage Frequency Signature (SIG) Comments Components Source Aspirin Aspirin Yes 81 Daily [facility] Lisinopril Lisinopril Yes 10 Bedtime [facility] Pravastatin Sodium Pravastatin Sodium Yes 20 Da chris [facility] Blood Pressure Blood Pressure 2018-04-16 00:00:00 No 3 Daily [facility] Tamsulosin Hcl (Flomax*) 0.4 Mg CAP Tamsulosin Hcl (Flomax*) 0.4 Mg CAP 2018-04-16 00:00:00 No .4 Daily [facility] Vital Signs Vital Name Observation Time Observation Value Comments Source Body Temperature 2020-03-01 05:58:00 99.0 [degF] [facility] Weight 2020-03-01 01:34:00 160 [lb_av] [facility] BMI (Body Mass Index) 2020-03-01 01:34:00 21.7 kg/m2 [facility] Procedures Procedure Date / Time Performed Performing Clinician Sourc e Computed tomography angiography of abdom en and pelvis without then with contrast 2020-03-01 00:00:00 [facility] Results Test Description Test Time Test Comments Results Result Comments Source CHEST SINGLE (PORTABLE) 2020-03-01 09:07:00 [place] [address] Patient Name: CATRINA SUTHERLAND MR #: [id number] : 1935 Age/Sex: 84/M Req #: [id number] Adm Physician: SABINE WALKER MD Ordered by: SABINE WALKER MD Report #: [id number] [facility]: [facility] Room/Bed: [place] [address] Procedure: [id number] DX/CHEST SINGLE (PORTABLE) Exam Date: 03/01/20 Exam Time: 0850 REPORT STATUS: Signed EXAMINATION: CHEST SINGLE (PORTABLE) INDICATION: Postoperative COMPARISON: Chest radiograph 03/01/2020 FINDINGS: LINES/TUBES:Left subclavian central venous catheter terminates in the SVC. Enteric tube projects below the diaphragm with tip not visualized. EKG leads overlie the chest. LUNGS:The lungs are well-inflated. Minimal bibasilar subsegmental atelectasis. No focal consolidation or pulmonary edema. PLEURA:No pleural effusion or pneumothorax. MEDIASTINUM:The cardiomediastinal silhouette appears normal in size and shape. BONES/SOFT TISSUES:No acute osseous injury. ABDOMEN:No free air under the diaphragm. IMPRESSION: Minimal bibasilar subsegmental atelectasis. No focal pneumonia or pulmonary edema. Signed by: Jania Arroyo MD on 03/01/2020 9:09 AM Dictated By: JANIA ARROYO MD 8 Transcribed By: JUAN R on 03/01/20908 COPY TO: SABINE WALKER MD Fluoroscopic procedure less than one hour duration 2020-02-11 05:42:00 Test Item Lactic Acid Level (test code = Lactic Acid Level) 2.7 0.5- 2.0 Results repeated and called to ANGELICA SIDDIQUI RN at 0622 on 03/01/20 by Terrence Del Rio. Read back and verified.[facility] HospitalFluoroscopic procedure less than one hour qxfwxvjt6141-57-94 05:00:00* Test Item Value Reference Range Interpretation Comments Coronavirus (PCR) (test code = Coronavirus (PCR)) NOT DETECTED NOTD ETECTED SARS-COV2/RT-PCR CEPHEIDResults are for the detection of SARS-COV-2 RNA. The ZACH S-COV-2 RNA is generally detectable in nasopharyngeal swab specimens during the acute phase of infection. Positive results are indicitive of active infection wi SARS-COV-2; clinical correlation with patient history and other diagnostic in formation is necessary to determine patient infection status. Positive results d o not rule out bacterial infection or co-infection with other viruses. The agent detected may not be the definite cause of the disease.The limit of detection fo r this assay is 250 copies/mLThe SARS-CoV-2 test is a rapid, real-time RT-PCR [facility] intended for the qualitative detection of nucleic acid from SARS-CoV-2 in silvia opharyngeal swab specimen collected from individuals suspected of COVID-19 by eir healthcare provider. This test has not been Food and Drug Administration (FD A) cleared or approved and has been authorized by FDA under an Emergency Use Aut horization (EUA). This EUA will be effective until the declaration that circumst ances exist justifying the authorization of the emergency use of in vitro diagno stic test for detection and or diagnosis of COVID-19 is terminated under section 564(b) of the Act, or the the EUA is revoked under 564(g) of the ACT.[facility] 2020-03-01 03:54:00* Test Item Value Reference Range Interpretation Comments Urine Color (test code = 5778-6) YELLOW YELLOW [facility] gkplhzp5339-96-41 03:54:00* Test Item Value Reference Range Interpretation Comments Urine Clarity (test code = 56888-9) CLEAR CLEAR [facility] Urine by Test strip 2020-03-01 03:54:00* Test Item Value Reference Range Interpretation Comments Urine Specific Rhodelia (test code = 5811-5) 1.015 1.010-1.02 5 [facility] pH measurement by automated test gqxbb0040-77-82 03:54:00* Test Item Value Reference Range Interpretation Comments Urine pH (test code = 43304-9) 7 5-7 [facility] HospitalU[facility] leukocyte esterase detection by vmaibkzu5257-30-30 03:54:00* Test Item Value Reference Range Interpretation Comments Urine Leukocyte Esterase (test code = 5799-2) NEGATIVE NEGATIVE [facility] HospitalUrine nitrite crrxmswap0730-85-10 03:54:00* Test Item Value Reference Range Interpretation Comments Urine Nitrite (test code = 09748-4) NEGATIVE NEGATIVE [facility] HospitalU[facility] protein measurement by test strip (mass/volume)2020-03-01 03:54:00* Test Item Value Reference Range Interpretation Comments Urine Protein (test code = 5804-0) NEGATIVE NEGATIVE [facility] HospitalU[facility] glucose glpcbtfvq2450-35-72 03:54:00* Test Item Value Reference Range Interpretation Comments Urine Glucose (UA) (test code = 2349-9) NEGATIVE NEGATIVE [facility] HospitalUrine ketones detection by automated test calcl2036-81-36 03:54:00* Test Item Value Reference Range Interpretation Comments Urine Ketones (test code = 54462-7) TRACE NEGATIVE [facility] HospitalUrine urobilinogen measurement by test strip (mass/volume)2020-03-01 03:54:00* Test Item Value Reference Range Interpretation Comments Urine Urobilinogen (test code = 40902-4) 0.2 0.2-1 [facility] HospitalU[facility] total bilirubin measurement (mass/volume)2020-03-01 03:54:00* Test Item Value Reference Range Interpretation Comments Urine Bilirubin (test code = 1978-6) NEGATIVE NEGATIVE [facility] HospitalUrine erythrocytes moxffhiub1349-80-81 03:54:00* Test Item Value Reference Range Interpretation Comments Urine Blood (test code = 91256-5) NEGATIVE NEGATIVE [facility] HospitalAutomated urine sediment leukocyte count by microscopy (number/high power field)2020-03-01 03:54:00* Test Item Value Reference Range Interpretation Comments Urine WBC (test code = 5821-4) 0-5 0-5 [facility] HospitalErythrocytes detection in urine sediment by light lyppmokstv2920-69-88 03:54:00* Test Item Value Reference Range Interpretation Comments Urine RBC (test code = 85503-4) 0-5 0-5 [facility] HospitalBacteria detection in urine sediment by light alzoopujeh3416-54-03 03:54:00* Test Item Value Reference Range Interpretation Comments Urine Bacteria (test code = 73828-2) RARE NONE [facility] HospitalEpithelial cells detection in urine sediment by light hzrgxjubio9813-01-49 03:54:00* Test Item Value Reference Range Interpretation Comments Urine Epithelial Cells (test code = 75182-3) RARE NONE [facility] HospitalCTA ABD/KNVEJL5962-37-02 03:39:00 [place] [address] Patient Name: CATRINA SUTHERLAND MR #: [id number] : 1935 Age/Sex: 84/M Req #: [id number] Adm Physician: Ordered by: Nayeli Quick MD Report #: [id number] Location: [facility] araya/Bed: Procedure: [id number] CT/CTA AB D/PELVIS Exam Date: 03/01/20 Exam Time: 0300 REPORT STATUS: Signed EXAM: CTA of the Abdominal Aorta and Pelvic Arteries WITH Contrast INDICATION: Abd pain COMPARISON: None. TECHNIQUE: Multi-detector CT technology was employed. CT A of the abdomen and pelvis was performed after the administration of IV contr ast. IV CONTRAST: 150 mL of Omnipaque 350 ORAL CONTRAST : None COMPLICATIONS: None For optimization of anatomic ev aluation, multiplanar reconstruction, maximum intensity projections, and advan jenna 3-D off-line postprocessing were performed on a dedicated stand-alone work station under the direct supervision of the interpreting physician. FINDI NGS: LOWER CHEST: Chronic peripheral fibrotic changes at the lung bases. Aorta: Aneurysmal dilatation of the infrarenal abdominal aorta measuri ng up to 3.9 cm with eccentric noncalcified plaque within the hernia sac. Celiac trunk is patent. SMA is patent. Renal arteries: Moderate calci fied and noncalcified plaque at the origin of the right renal artery produces at least moderate to severe stenosis. The left renal artery is patent. IM A is patent. Iliofemoral vessels are moderate atherosclerotic disease of th e iliofemoral vessels, but the vessels are patent. 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 ABDOMEN: Multiple fl uid-filled dilated small bowel loops measuring up to 3.1 cm are clustered in t he right hemiabdomen lateral to the ascending colon in the right paracolic gut ter. There is marked wall thickening measuring up to 7 mm. The kohler are intri nsically hyperdense on precontrast imaging suggestive of submucosal hemorrhage there is a suggestion of 2 transition points on coronal imaging is appreciate d on images series 506 image 39. Associated mesenteric edema. Limited ev aluation of the viscera due to later arterial phase technique. No significa nt abnormality of these liver, spleen, adrenal glands, and pancreas. No h ydronephrosis. Enlarged prostate. IMPRESSION: 1. Findings concerning f or a closed loop small bowel obstruction likely via right paracolic gutter int ernal hernia. CT findings are concerning for bowel ischemia. Emergent surgical consultation is recommended. 2. Aneurysmal dilatation of the infrarenal abdom inal aorta measuring up to 3.9 cm. No evidence of instability. Critical r esults were discussed with Dr. Quick on 03/01/2020 at 3:50 AM. Signed by: Roger Vivar MD on 03/01/2020 4:04 AM Dictated By: ROGER VIVAR MD El ectronically Signed By: ROGER VIVAR MD on 03/01/20403 Transcribed By: SILVER LEMUS on 03/01/20403 COPY TO: NAYELI QUICK MD ABDOMEN-1VIEW (KUB)2020-03-01 02:39:00 [place] [address] Patient Name: CATRINA SUTHERLAND MR #: [id number] : 1935 Age/Sex: 84/M Req #: [id number] Adm Physician: Ordered by: Nayeli Quick MD Report #: [id number] Location: ER Room/Bed: Procedure: [id number] DX/ABDOME N-1VIEW (KUB) Exam Date: 03/01/20 Exam Time: 0205 REPORT STATUS: Signed EXAMINATION: CHEST SINGLE (PORTABLE), ABDOMEN-1VIEW (KUB) INDICATION: Y CP [id number] COMPARISON: None FINDINGS: Hea rt is not enlarged. Pulmonary vasculature is within normal limits. There ar e mild increased reticulonodular lung markings at the lung bases which have mi ldly increased from 2017. No pleural effusion. No pneumothorax. Gas and sto ol are seen throughout the colon to the level of the rectum. No dilated small bowel loops are present. Surgical clips are seen in the pelvis. IMPRESSION: 1. Mild bibasilar reticulonodular densities at the lung bases, mildly inc reased from 2017, likely represent chronic parenchymal changes. No consolidati on. 2. Nonobstructive bowel gas pattern. Signed by: Roger Vivar MD on 03/01/2020 3:01 AM Dictated By: ROGER VIVAR MD 0 Transcribed By: JUAN R on 03/01/20300 COPY TO: NAYELI QUICK MD CHEST SINGLE (PORTABLE) 2020-03-01 02:39:00 [place] [address] Patient Name: CATRINA SUTHERLAND MR #: [id number] : 1935 Age/Sex: 84/M Req #: [id number] Adm Physician: Ordered by: Nayeli Quick MD Report #: [id number] Location: ER Room/Bed: Procedure: [id number] DX/CHEST SINGLE (PORTABLE) Exam Date: 03/01/20 Exam Time: 020 5 REPORT STATUS: Signed EXAMINAT ION: CHEST SINGLE (PORTABLE), ABDOMEN-1VIEW (KUB) INDICATION: Y CP [id number] COMPARISON: None FINDINGS: Heart is not enlarged. Pulmonary vasculature is within normal limits. Ther e are mild increased reticulonodular lung markings at the lung bases which hav e mildly increased from 2017. No pleural effusion. No pneumothorax. Gas and stool are seen throughout the colon to the level of the rectum. No dilated sm all bowel loops are present. Surgical clips are seen in the pelvis. IMPRESS ION: 1. Mild bibasilar reticulonodular densities at the lung bases, mildly increased from 2017, likely represent chronic parenchymal changes. No consoli dation. 2. Nonobstructive bowel gas pattern. Signed by: Roger Vivar MD on 03/01/2020 3:01 AM Dictated By: ROGER VIVAR MD Electronically Si gned By: ROGER VIVAR MD on 03/01/20300 Transcribed By: JUAN R on 03/01/20300 COPY TO: NAYELI QUICK MD Blood leukocytes automated count (number/volume)2020-03-01 01:40:00* Test Item Value Reference Range Interpretation Comments White Blood Count (test code = 6690-2) 13.60 4.8-10.8 [facility] erythrocytes automated count (number/volume)2020-03-01 01:40:00* Test Item Value Reference Range Interpretation Comments Red Blood Count (test code = 789-8) 4.77 4.3-5.7 [facility] HospitalBlood hemoglobin measurement (moles/volume)2020-03-01 01:40:00* Test Item Value Reference Range Interpretation Comments Hemoglobin (test code = 47593-0) 14.4 14.0-18.0 [facility] HospitalAutomated blood hematocrit (volume fraction)2020-03-01 01:40:00* Test Item Value Reference Range Interpretation Comments Hematocrit (test code = 4544-3) 43.4 38.2-49.6 [facility] HospitalAutomated erythrocyte mean corpuscular qjecif7810-35-28 01:40:00* Test Item Value Reference Range Interpretation Comments Mean Corpuscular Volume (test code = 787-2) 91.0 81-99 [facility] HospitalAutomated erythrocyte mean corpuscular hemoglobin (mass per erythrocyte)2020-03-01 01:40:00* Test Item Value Reference Range Interpretation Comments Mean Corpuscular Hemoglobin (test code = 785-6) 30.2 28-32 [facility] HospitalAutomated erythrocyte mean corpuscular hemoglobin concentration measurement (mass/volume)2020-03-01 01:40:00* Test Item Value Reference Range Interpretation Comments Mean Corpuscular Hemoglobin Concent (test code = 786-4) 33.2 31-35 [facility] HospitalRDW YksJc-Jqy9311-05-21 01:40:00* Test Item Value Reference Range Interpretation Comments Red Cell Distribution Width (test code = 47704-0) 12.6 11.7 -14.4 [facility] HospitalAutomated blood platelet count (count/volume)2020-03-01 01:40:00* Test Item Value Reference Range Interpretation Comments Platelet Count (test code = 777-3) 329 140-360 [facility] HospitalAutomated blood segmented neutrophil count as percentage of total hodkkygadk1828-95-36 01:40:00* Test Item Value Reference Range Interpretation Comments Neutrophils (%) (Auto) (test code = 92321-2) 84.5 38.7-80.0 [facility] HospitalAutomated blood lymphocyte count as percentage ot total xjzlikqzyt2450-13-92 01:40:00* Test Item Value Reference Range Interpretation Comments Lymphocytes (%) (Auto) (test code = 736-9) 7.6 18.0-39.1 [facility] HospitalAutomated blood monocyte count as percentage of total whcyloixjn2816-54-97 01:40:00* Test Item Value Reference Range Interpretation Comments Monocytes (%) (Auto) (test code = 5905-5) 6.9 4.4-11.3 [facility] HospitalAutomated blood eosinophil count as percentage of total wlbhaggsmq4816-04-40 01:40:00* Test Item Value Reference Range Interpretation Comments Eosinophils (%) (Auto) (test code = 713-8) 0.4 0.0-6.0 [facility] HospitalAutomated blood basophil count as percentage of total mgqyiyuqlf6258-43-20 01:40:00* Test Item Value Reference Range Interpretation Comments Basophils (%) (Auto) (test code = 706-2) 0.2 0.0-1.0 [facility] HospitalFluoroscopic procedure less than one hour qbbwougw4670-47-60 01:40:00* Test Item Value Reference Range Interpretation Comments IM GRANULOCYTES % (test code = IM GRANULOCYTES %) 0.4 0.0- 1.0 [facility] HospitalAutomated blood neutrophil count 2020-03-01 01:40:00* Test Item Value Reference Range Interpretation Comments Neutrophils # (Auto) (test code = 751-8) 11.5 2.1-6.9 [facility] HospitalBlood lymphocytes count (number/volume) 2020-03-01 01:40:00* Test Item Value Reference Range Interpretation Comments Lymphocytes # (Auto) (test code = 27532-5) 1.0 1.0-3.2 [facility] HospitalBlcook [facility] monocytes automated count (number/volume)2020-03-01 01:40:00* Test Item Value Reference Range Interpretation Comments Monocytes # (Auto) (test code = 742-7) 0.9 0.2-0.8 [facility] HospitalAutomated blood eosinophil count 2020-03-01 01:40:00* Test Item Value Reference Range Interpretation Comments Eosinophils # (Auto) (test code = 711-2) 0.1 0.0-0.4 [facility] HospitalAutomated blood basophil count (count/volume)2020-03-01 01:40:00* Test Item Value Reference Range Interpretation Comments Basophils # (Auto) (test code = 704-7) 0.0 0.0-0.1 [facility] HospitalFluoroscopic procedure less than one hour zermjsjh9671-62-58 01:40:00* Test Item Value Reference Range Interpretation Comments Absolute Immature Granulocyte (auto (kemar t code = Absolute Immature Granulocyte (auto) 0.06 0-0.1 [facility] HospitalProthrombin time (PT) in platelet poor plasma by coagulation lujmz9814-11-69 01:40:00* Test Item Value Reference Range Interpretation Comments Prothrombin Time (test code = 5902-2) 13.7 11.9-14.[address] [facility] in Platelet poor plasma by Coagulation blklf8125-43-21 01:40:00* Test Item Value Reference Range Interpretation Comments Prothromb Time International Ratio (test code = 6301-6) 1.00 Oral Anticoagulant Therapy INR Values:1. Low Intensity Therapy 1.5 - 2.02 . Moderate Intensity Therapy 2.0 - 3.03. High Intensity Therapy(1) 2.5 - 3. 54. High Intensity Therapy(2) 3.0 - 4.05. Panic Value INR > 5.0 [facility] or plasma sodium measurement (moles/volume)2020-03-01 01:40:00* Test Item Value Reference Range Interpretation Comments Sodium Level (test code = 2951-2) 135 136-145 [facility] Systemer[facility] or plasma potassium measurement (moles/volume)2020-03-01 01:40:00* Test Item Value Reference Range Interpretation Comments Potassium Level (test code = 2823-3) 5.4 3.5-5.1 [facility] Systemer[facility] or plasma chloride measurement (moles/volume)2020-03-01 01:40:00* Test Item Value Reference Range Interpretation Comments Chloride Level (test code = 2075-0) 102 98-107 [facility] Systemerum or plasma carbon dioxide, total measurement (moles/volume)2020-03-01 01:40:00* Test Item Value Reference Range Interpretation Comments Carbon Dioxide Level (test code = 2028-9) 24 22-29 [facility] Systemerum or plasma anion kbj1092-28-09 01:40:00* Test Item Value Reference Range Interpretation Comments Anion Gap (test code = 52193-9) 14.4 8-16 [facility] Systemer[facility] or plasma urea nitrogen measurement (mass/volume)2020-03-01 01:40:00* Test Item Value Reference Range Interpretation Comments Blood Urea Nitrogen (test code = 3094-0) 11 7-26 [facility] Systemer[facility] or plasma creatinine measurement (mass/volume)2020-03-01 01:40:00* Test Item Value Reference Range Interpretation Comments Creatinine (test code = 2160-0) 1.08 0.72-1.25 [facility] Systemerum or plasma urea nitrogen/creatinine mass vqbjd3545-87-08 01:40:00* Test Item Value Reference Range Interpretation Comments BUN/Creatinine Ratio (test code = 3097-3) 10 6-25 [facility] HospitalEstimated glomerular filtration rate (GFR) trjyuixwgrata6212-25-12 01:40:00* Test Item Value Reference Range Interpretation Comments Estimat Glomerular Filtration Rate (test code = 049554124) > 60 >60 Ranges were taken from the National Kidney Disease Education Program and the [facility] Kidney Foundation literature.Reference ranges:60 or greater: Hhzcft78-50 ( for 3 consecutive months): Chronic kidney disease 15 or less: Kidney failureBaptist Saint Anthony's HospitalGlucose cakuimwclei2629-74-88 01:40:00* Test Item Value Reference Range Interpretation Comments Glucose Level (test code = CIN5302) 157 74-118 [facility] Systemerum or plasma calcium measurement (mass/volume)2020-03-01 01:40:00* Test Item Value Reference Range Interpretation Comments Calcium Level (test code = 41626-2) 9.1 8.4-10.2 [facility] Systemerum or plasma total bilirubin measurement (mass/volume)2020-03-01 01:40:00* Test Item Value Reference Range Interpretation Comments Total Bilirubin (test code = 1975-2) 0.8 0.2-1.2 [facility] HospitalFluoroscopic procedure less than one hour daupqypl1733-92-73 01:40:00* Test Item Value Reference Range Interpretation Comments Aspartate Amino Transf (AST/SGOT) (test code = Aspartate Amino Transf (AST/SGOT)) 29 5-34 [facility] Systemerum or plasma alanine aminotransferase measurement (enzymatic activity/volume)2020-03-01 01:40:00* Test Item Value Reference Range Interpretation Comments Alanine Aminotransferase (ALT/SGPT) (test code = 1742-6) 17 0-55 [facility] Systemer[facility] or plasma protein measurement (mass/volume)2020-03-01 01:40:00* Test Item Value Reference Range Interpretation Comments Total Protein (test code = 2885-2) 7.8 6.5-8.1 [facility] Systemer[facility] or plasma albumin measurement (mass/volume)2020-03-01 01:40:00* Test Item Value Reference Range Interpretation Comments Albumin (test code = 1751-7) 4.4 3.5-5.0 [facility] HospitalPlasma globulin measurement (mass/volume) 2020-03-01 01:40:00* Test Item Value Reference Range Interpretation Comments Globulin (test code = 26934-6) 3.4 2.3-3.5 [facility] Systemerum or plasma albumin/globulin mass pzfum5827-40-03 01:40:00* Test Item Value Reference Range Interpretation Comments Albumin/Globulin Ratio (test code = 1759-0) 1.3 0.8-2.0 [facility] Systemer[facility] or plasma alkaline phosphatase measurement (enzymatic activity/volume)2020-03-01 01:40:00* Test Item Value Reference Range Interpretation Comments Alkaline Phosphatase (test code = 6768-6) 66 40-150 [facility] HospitalTroponin I measurement by highly sensitive enzyme ikhjzvbfrxk1149-42-36 01:40:00* Test Item Value Reference Range Interpretation Comments Troponin I (test code = 22203-2) < 0.001 0-0.300 [facility] Systemer[facility] or plasma lipase measurement (enzymatic activity/volume)2020-03-01 01:40:00* Test Item Value Reference Range Interpretation Comments Lipase (test code = 3040-3) 9 8-78 [facility] [id number] 15:57:00 [place] [address] Patient Name: CATRINA SUTHERLAND MR #: [id number] : 1935 Age/Sex: 83/M Req #: [id number] Adm Physician: Ordered by: BETTY FARRIS MD Report #: [id number] Location: [facility] Room/Bed: Procedure: [id number] M RI/MRI HAND RIGHT WOW Exam Date: Exam Time: REPORT STATUS: Signed TECHNIQUE: Mag netic resonance imaging of the RIGHT HAND (optimized to evaluate the long fing er) was performed WITH and WITHOUT injected contrast, 15 cc of intravenous Mu ltiHance. A skin marker overlies the ulnar aspect of the long finger at the level of the middle phalanx, mild associated artifact slightly limits evaluati on of the mass. HISTORY: Mass, right long finger, rule out giant cell t umor COMPARISON: None available FINDINGS: Bones: No focal or infil trative bone marrow replacing abnormalities identified. No acute fracture o r osteonecrosis. Joints: The joint spaces appear well-maintained. No joint effusion. Soft Tissues: Underlying the region of the skin marker, a 1.6 cm (AP) x 0.9 cm (ML) x 1.7 cm (CC) lobulated soft tissue mass. Si gnal characteristics include: Isointense on fat sensitive images, hyperintense on fluid sensitive images with a septated appearance on STIR, and there appea rs to be diffuse homogeneous enhancement on the images are not affected by the described artifacts. IMPRESSION: Soft tissue mass at the ulnar side of the long finger at the level of the proximal half of the middle phalanx, wi thin the stated limitation, the mass appears to be solid and enhancing. The si gnal characteristics are not classic for a giant cell tumor of the tendon arizmendi th. The differential diagnosis includes other soft tissue neoplasms such as s ynovial sarcoma. Consider biopsy for definitive diagnosis. Signed by: Dr. Mane Hyde D.O., M.M.M. on 11/13/2018 4:11 PM Dictated By: MANE Rice 10 Transcribed By: AFIA HANKS on 11/13/18 161 COPY TO: BETTY FARRIS MD CHEST 2 VIEWS 2018-04-17 09:42:00 [place] [address] Patient Name: CATRINA SUTHERLAND MR #: [id number] : 1935 Age/Sex: 82/M Req #: [id number] [facility] Physician: Ordered by: AARON PRETTY MD Report #: [id number] Location: OR Room/Bed: Procedure: [id number] DX/RUPERT ST 2 VIEWS Exam Date: Exam Time: REPORT STATUS: Signed PROCEDURE: Frontal and la teral views of the chest. COMPARISON: Chest radiograph 03/05/17. IND ICATIONS: PREOPERATIVE CHEST XRAY FOR PROSTATE SURGERY FINDINGS: L andrea/tubes: Linear radiopaque density overlying the right medial third rib i s overlying the patient on lateral view. Lungs: The lungs are mildly hype rinflated. Mild patchy bibasilar opacities. No evidence of lobar consolidatio n. No evidence of pulmonary edema. Pleura: There is no pleural effusi on or pneumothorax. Heart and mediastinum: The cardiomediastinal silhouet te is unremarkable. Bones: No acute bony abnormality. IMPRESSIO N: Emphysematous changes of the lungs with patchy bibasilar opacities, likely atelectasis. No evidence of lobar pneumonia or pulmonary edema. Dictated by: LAMINE LEE M.D. on 04/17/2018 at 9:42 Electronically ap proved by: LAMINE LEE M.D. on 04/17/2018 at 9:42 Dictated By: Annmarie LEE MD 1 Transcri bed By: DONNA on 04/17/18941 COPY TO: AARON PRETTY MD CHEST [address] [address] Patient Name: CATRINA SUTHERLAND MR #: [id number] : 1935 Age/Sex: 81/M Req #: [id number] [facility] Physician: Ordered by: AARON PRETTY MD Report #: [id number] Location: OR Room/Bed: Procedure: [id number] DX/CHEST 2 VIEWS Exam Date: 02/10 10/25 Exam Time: 1035 REPORT STATUS: Signed P ROCEDURE: Frontal and lateral views of the chest. COMPARISON: None. INDICATIONS: PRE OP PROSTATE SURGERY FINDINGS: Lines/tubes: No ne. Lungs: The lungs are mildly hyperexpanded. There is basilar scarring. There is no evidence of pneumonia or pulmonary edema. A prominent nippl e shadow is projected over the left lower lung. Pleura: There is no pleur al effusion or pneumothorax. Heart and mediastinum: The heart and the med iastinum are normal. Bones: No acute bony abnormality. IMPRESSION: Mildly hyperexpanded lungs and basilar scarring, suggestive of COPD. No acute cardiopulmonary abnormality. Dictated by: Natividad Medina M.D. on 03/05/2017 at 13:50 Electronically approved by: Natividad Medina M.D. on 03/05/2017 at 13:50 Dictated By: NATIVIDAD MEDINA MD Electr onically Signed By: NATIVIDAD MEDINA MD on 03/05/17 1359 Transcribed By: DONNA on 03/05/17 1358 COPY TO: AARON PRETTY MD
--- OUTSIDE RECORDS SUMMARY | 2020-03-07 14:39 | XMS REPORT | Continuity of Care Document ---
Author Author [facility] t Organization [facility] Address [address] [place] [address] Phone Unavailable Care Team Providers Care Jelly Maker Name Role Phone MD YOMI MCKEON PCP SABINE WALKER Attphys Unavailable KALEIGH BETTY Attphys Unavailable HAMPEL, AARON Attphys Unavailable SABINE WALKER Admphys Unavailable Payers Payer Name Policy Type Policy Number Effective Date Expiration Date Annmarie navarrete [facility] [id number] 2019 00:00:00 [facility] Medicare A & B [id number] 2002 00:00:00 [facility] Problems Condition Name Condition Details Condition Category Status Onset Date Resolution Date Last Treatment Date Treating Clinician Comments Source Internal hernia Problem Active [facility] Allergies, Adverse Reactions, Alerts This patient has no known allergies or adverse reactions. Social History Social Habit Start Date Stop Date Quantity Comments Source Sex Assigned At 1935 00:00:00 1935 00:00:00 Male [facility] Medications Ordered Medication Name Filled Medication Name Start Date Stop Da te Current Medication? Ordering Clinician Indication Dosage Frequency Signature (SIG) Comments Components Source Aspirin Aspirin Yes 81 Daily [facility] Lisinopril Lisinopril Yes 10 Bedtime [facility] Pravastatin Sodium Pravastatin Sodium Yes 20 Da chris [facility] Blood Pressure Blood Pressure 2018-04-16 00:00:00 No 3 Daily [facility] Tamsulosin Hcl (Flomax*) 0.4 Mg CAP Tamsulosin Hcl (Flomax*) 0.4 Mg CAP 2018-04-16 00:00:00 No .4 Daily [facility] Vital Signs Vital Name Observation Time Observation Value Comments Source Body Temperature 2020-03-01 05:58:00 99.0 [degF] [facility] Weight 2020-03-01 01:34:00 160 [lb_av] [facility] BMI (Body Mass Index) 2020-03-01 01:34:00 21.7 kg/m2 [facility] Procedures Procedure Date / Time Performed Performing Clinician Sourc e Computed tomography angiography of abdom en and pelvis without then with contrast 2020-03-01 00:00:00 [facility] Results Test Description Test Time Test Comments Results Result Comments Source CHEST SINGLE (PORTABLE) 2020-03-01 09:07:00 [place] [address] Patient Name: CATRINA SUTHERLAND MR #: [id number] : 1935 Age/Sex: 84/M Req #: [id number] Adm Physician: SABINE WALKER MD Ordered by: SABINE WALKER MD Report #: [id number] Location: [facility] Room/Bed: [place] [address] Procedure: [id number] DX/CHEST SINGLE (PORTABLE) Exam Date: 03/01/20 Exam [...] by Terrence Del Rio. Read back and verified.[facility] procedure less than one hour cftgadrg7247-09-86 05:00:00* Test Item Value Reference Range Interpretation [...] SARS-CoV-2 test is a rapid, real-time RT-PCR [facility] intended for the qualitative detection of nucleic [...] under 564(g) of the ACT.[facility] 2020-03-01 03:54:00* Test Item Value Reference Range Interpretation Comments Urine Color (test code = 5778-6) YELLOW YELLOW [facility] wzxxapu3651-37-63 03:54:00* Test Item Value Reference Range Interpretation Comments Urine Clarity (test code = 62976-2) CLEAR CLEAR [facility] by Test strip 2020-03-01 03:54:00* Test Item Value Reference Range Interpretation Comments Urine Specific [place] (test code = 5811-5) 1.015 1.010-1.02 5 [facility] pH measurement by automated test tndjn6143-70-14 03:54:00* Test Item Value Reference Range Interpretation Comments Urine pH (test code = 92500-3) 7 5-7 [facility] leukocyte esterase detection by kglihujj6187-93-89 03:54:00* Test Item Value Reference Range Interpretation Comments Urine Leukocyte Esterase (test code = 5799-2) NEGATIVE NEGATIVE [facility] nitrite nthjupswb0251-98-83 03:54:00* Test Item Value Reference Range Interpretation Comments Urine Nitrite (test code = 01202-3) NEGATIVE NEGATIVE [facility] protein measurement by test strip (mass/volume)2020-03-01 03:54:00* Test Item Value Reference Range Interpretation Comments Urine Protein (test code = 5804-0) NEGATIVE NEGATIVE [facility] glucose ymjwrfcjx0362-59-93 03:54:00* Test Item Value Reference Range Interpretation Comments Urine Glucose (UA) (test code = 2349-9) NEGATIVE NEGATIVE [facility] ketones detection by automated test vvyko8218-71-72 03:54:00* Test Item Value Reference Range Interpretation Comments Urine Ketones (test code = 80667-0) TRACE NEGATIVE [facility] urobilinogen measurement by test strip (mass/volume)2020-03-01 03:54:00* Test Item Value Reference Range Interpretation Comments Urine Urobilinogen (test code = 28125-5) 0.2 0.2-1 [facility] total bilirubin measurement (mass/volume)2020-03-01 03:54:00* Test Item Value Reference Range Interpretation Comments Urine Bilirubin (test code = 1978-6) NEGATIVE NEGATIVE [facility] erythrocytes dguqhgufw4816-18-56 03:54:00* Test Item Value Reference Range Interpretation Comments Urine Blood (test code = 38092-6) NEGATIVE NEGATIVE [facility]Automated urine sediment leukocyte count by microscopy (number/high power field)2020-03-01 03:54:00* Test Item Value Reference Range Interpretation Comments Urine WBC (test code = 5821-4) 0-5 0-5 [facility] HospitalErythrocytes detection in urine sediment by light qjrjhhlpjn1327-88-72 03:54:00* Test Item Value Reference Range Interpretation Comments Urine RBC (test code = 40372-9) 0-5 0-5 [facility] HospitalBacteria detection in urine sediment by light nxeoiyrsue1767-86-87 03:54:00* Test Item Value Reference Range Interpretation Comments Urine Bacteria (test code = 10960-5) RARE NONE [facility] HospitalEpithelial cells detection in urine sediment by light etgjtczcbo9144-88-14 03:54:00* Test Item Value Reference Range Interpretation Comments Urine Epithelial Cells (test code = 60509-4) RARE NONE [facility] HospitalCTA ABD/RKLSNE2941-11-90 03:39:00 [place] [address] Patient Name: CATRINA SUTHERLAND MR #: [id number] : 1935 Age/Sex: 84/M Req #: [id number] Adm Physician: Ordered by: Nayeli Quick MD Report #: [id number] Location: [facility] araya/Bed: Procedure: [id number] CT/CTA AB D/PELVIS Exam Date: 03/01/20 Exam [...] TO: NAYELI QUICK MD ABDOMEN-1VIEW (KUB)2020-03-01 02:39:00 [place] [address] Patient Name: CATRINA SUTHERLAND MR #: [id number] : 1935 Age/Sex: 84/M Req #: [id number] Adm Physician: Ordered by: Nayeli Quick MD Report #: [id number] Location: ER Room/Bed: Procedure: [id number] DX/ABDOME N-1VIEW (KUB) Exam Date: 03/01/20 Exam Time: 0205 REPORT STATUS: Signed EXAMINATION: CHEST SINGLE (PORTABLE), ABDOMEN-1VIEW (KUB) INDICATION: Y CP [id number] COMPARISON: None FINDINGS: Hea rt is [...] QUICK MD CHEST SINGLE (PORTABLE) 2020-03-01 02:39:00 [place] [address] Patient Name: CATRINA SUTHERLAND MR #: [id number] : 1935 Age/Sex: 84/M Req #: [id number] Adm Physician: Ordered by: Nayeli Quick MD Report #: [id number] Location: ER Room/Bed: Procedure: [id number] DX/CHEST SINGLE (PORTABLE) Exam Date: 03/01/20 Exam Time: 020 5 REPORT STATUS: Signed EXAMINAT ION: CHEST SINGLE (PORTABLE), ABDOMEN-1VIEW (KUB) INDICATION: Y CP [id number] COMPARISON: None FINDINGS: Heart is not [...] Count (test code = 6690-2) 13.60 4.8-10.8 [facility]Blood erythrocytes automated count (number/volume)2020-03-01 01:40:00* Test Item Value Reference Range Interpretation Comments Red Blood Count (test code = 789-8) 4.77 4.3-5.7 [facility] HospitalBlood hemoglobin measurement (moles/volume)2020-03-01 01:40:00* Test Item Value Reference Range Interpretation Comments Hemoglobin (test code = 84292-8) 14.4 14.0-18.0 [facility] HospitalAutomated blood hematocrit (volume fraction)2020-03-01 01:40:00* Test Item Value Reference Range Interpretation Comments Hematocrit (test code = 4544-3) 43.4 38.2-49.6 [facility] HospitalAutomated erythrocyte mean corpuscular ahdris4439-02-40 01:40:00* Test Item Value Reference Range Interpretation Comments Mean Corpuscular Volume (test code = 787-2) 91.0 81-99 [facility] HospitalAutomated erythrocyte mean corpuscular hemoglobin (mass per erythrocyte)2020-03-01 01:40:00* Test Item Value Reference Range Interpretation Comments Mean Corpuscular Hemoglobin (test code = 785-6) 30.2 28-32 [facility] HospitalAutomated erythrocyte mean corpuscular hemoglobin concentration measurement (mass/volume)2020-03-01 01:40:00* Test Item Value Reference Range Interpretation Comments Mean Corpuscular Hemoglobin Concent (test code = 786-4) 33.2 31-35 [facility] HospitalRDW QfpSz-Pfz8664-03-21 01:40:00* Test Item Value Reference Range Interpretation Comments Red Cell Distribution Width (test code = 01035-1) 12.6 11.7 -14.4 [facility] HospitalAutomated blood platelet count (count/volume)2020-03-01 01:40:00* Test Item Value Reference Range Interpretation Comments Platelet Count (test code = 777-3) 329 140-360 [facility] HospitalAutomated blood segmented neutrophil count as percentage of total imunjxkrfp0784-85-42 01:40:00* Test Item Value Reference Range Interpretation Comments Neutrophils (%) (Auto) (test code = 19627-5) 84.5 38.7-80.0 [facility] HospitalAutomated blood lymphocyte count as percentage ot total mvetivvxwe0329-50-77 01:40:00* Test Item Value Reference Range Interpretation Comments Lymphocytes (%) (Auto) (test code = 736-9) 7.6 18.0-39.1 [facility] HospitalAutomated blood monocyte count as percentage of total shrddyurvd3141-43-96 01:40:00* Test Item Value Reference Range Interpretation Comments Monocytes (%) (Auto) (test code = 5905-5) 6.9 4.4-11.3 [facility] HospitalAutomated blood eosinophil count as percentage of total vgbfoapozn6987-64-84 01:40:00* Test Item Value Reference Range Interpretation Comments Eosinophils (%) (Auto) (test code = 713-8) 0.4 0.0-6.0 [facility] HospitalAutomated blood basophil count as percentage of total qxrbqxrvif1259-81-33 01:40:00* Test Item Value Reference Range Interpretation Comments Basophils (%) (Auto) (test code = 706-2) 0.2 0.0-1.0 [facility] HospitalFluoroscopic procedure less than one hour lgzijjmt8666-13-33 01:40:00* Test Item Value Reference Range Interpretation Comments IM GRANULOCYTES % (test code = IM GRANULOCYTES %) 0.4 0.0- 1.0 [facility] HospitalAutomated blood neutrophil count 2020-03-01 01:40:00* Test Item Value Reference Range Interpretation Comments Neutrophils # (Auto) (test code = 751-8) 11.5 2.1-6.9 [facility] HospitalBlood lymphocytes count (number/volume) 2020-03-01 01:40:00* Test Item Value Reference Range Interpretation Comments Lymphocytes # (Auto) (test code = 96516-7) 1.0 1.0-3.2 [facility] monocytes automated count (number/volume)2020-03-01 01:40:00* Test Item Value Reference Range Interpretation Comments Monocytes # (Auto) (test code = 742-7) 0.9 0.2-0.8 [facility] HospitalAutomated blood eosinophil count 2020-03-01 01:40:00* Test Item Value Reference Range Interpretation Comments Eosinophils # (Auto) (test code = 711-2) 0.1 0.0-0.4 [facility] HospitalAutomated blood basophil count (count/volume)2020-03-01 01:40:00* Test Item Value Reference Range Interpretation Comments Basophils # (Auto) (test code = 704-7) 0.0 0.0-0.1 [facility] HospitalFluoroscopic procedure less than one hour rgbiqebd3263-85-58 01:40:00* Test Item Value Reference Range Interpretation Comments Absolute Immature Granulocyte (auto (kemar t code = Absolute Immature Granulocyte (auto) 0.06 0-0.1 [facility] HospitalProthrombin time (PT) in platelet poor plasma by coagulation dqgxo1760-13-15 01:40:00* Test Item Value Reference Range Interpretation Comments Prothrombin Time (test code = 5902-2) 13.7 11.9-14.[address] [facility] in Platelet poor plasma by Coagulation mpumh2353-96-16 01:40:00* Test Item Value Reference Range Interpretation Comments Prothromb Time International Ratio (test code = 6301-6) 1.00 Oral Anticoagulant Therapy INR Values:1. Low Intensity Therapy 1.5 - 2.02 . Moderate Intensity Therapy 2.0 - 3.03. High Intensity Therapy(1) 2.5 - 3. 54. High Intensity Therapy(2) 3.0 - 4.05. Panic Value INR > 5.0 [facility] Hospitalerum or plasma sodium measurement (moles/volume)2020-03-01 01:40:00* Test Item Value Reference Range Interpretation Comments Sodium Level (test code = 2951-2) 135 136-145 [facility] Hospitalerum or plasma potassium measurement (moles/volume)2020-03-01 01:40:00* Test Item Value Reference Range Interpretation Comments Potassium Level (test code = 2823-3) 5.4 3.5-5.1 [facility] Hospitalerum or plasma chloride measurement (moles/volume)2020-03-01 01:40:00* Test Item Value Reference Range Interpretation Comments Chloride Level (test code = 2075-0) 102 98-107 [facility] Hospitalerum or plasma carbon dioxide, total measurement (moles/volume)2020-03-01 01:40:00* Test Item Value Reference Range Interpretation Comments Carbon Dioxide Level (test code = 2028-9) 24 22-29 [facility] Hospitalerum or plasma anion ttr7535-03-60 01:40:00* Test Item Value Reference Range Interpretation Comments Anion Gap (test code = 27937-6) 14.4 8-16 [facility] Hospitalerum or plasma urea nitrogen measurement (mass/volume)2020-03-01 01:40:00* Test Item Value Reference Range Interpretation Comments Blood Urea Nitrogen (test code = 3094-0) 11 7-26 [facility] Hospitalerum or plasma creatinine measurement (mass/volume)2020-03-01 01:40:00* Test Item Value Reference Range Interpretation Comments Creatinine (test code = 2160-0) 1.08 0.72-1.25 [facility] Hospitalerum or plasma urea nitrogen/creatinine mass xncjm4465-64-92 01:40:00* Test Item Value Reference Range Interpretation Comments BUN/Creatinine Ratio (test code = 3097-3) 10 6-25 [facility] HospitalEstimated glomerular filtration rate (GFR) hltbcebyliewf7347-40-70 01:40:00* Test Item Value Reference Range Interpretation Comments Estimat Glomerular Filtration Rate (test code = 017990191) > 60 >60 Ranges were taken from the National Kidney Disease Education Program and the [facility] literature.Reference ranges:60 or greater: Jwjhig90-94 ( for 3 consecutive months): Chronic kidney disease 15 or less: Kidney failureMayhill HospitalGlucose ryxmnunypxw3849-39-18 01:40:00* Test Item Value Reference Range Interpretation Comments Glucose Level (test code = NUU6301) 157 74-118 [facility] Hospital[facility] or plasma calcium measurement (mass/volume)2020-03-01 01:40:00* Test Item Value Reference Range Interpretation Comments Calcium Level (test code = 24070-5) 9.1 8.4-10.2 [facility] Hospitalerum or plasma total bilirubin measurement (mass/volume)2020-03-01 01:40:00* Test Item Value Reference Range Interpretation Comments Total Bilirubin (test code = 1975-2) 0.8 0.2-1.2 [facility] HospitalFluoroscopic procedure less than one hour nrwbzujm1485-63-37 01:40:00* Test Item Value Reference Range Interpretation Comments Aspartate Amino Transf (AST/SGOT) (test code = Aspartate Amino Transf (AST/SGOT)) 29 5-34 [facility] Hospitalerum or plasma alanine aminotransferase measurement (enzymatic activity/volume)2020-03-01 01:40:00* Test Item Value Reference Range Interpretation Comments Alanine Aminotransferase (ALT/SGPT) (test code = 1742-6) 17 0-55 [facility] Hospitalerum or plasma protein measurement (mass/volume)2020-03-01 01:40:00* Test Item Value Reference Range Interpretation Comments Total Protein (test code = 2885-2) 7.8 6.5-8.1 [facility] Hospitalerum or plasma albumin measurement (mass/volume)2020-03-01 01:40:00* Test Item Value Reference Range Interpretation Comments Albumin (test code = 1751-7) 4.4 3.5-5.0 [facility] HospitalPlasma globulin measurement (mass/volume) 2020-03-01 01:40:00* Test Item Value Reference Range Interpretation Comments Globulin (test code = 22888-4) 3.4 2.3-3.5 [facility] or plasma albumin/globulin mass ougkc8638-29-04 01:40:00* Test Item Value Reference Range Interpretation Comments Albumin/Globulin Ratio (test code = 1759-0) 1.3 0.8-2.0 [facility] Hospitalerum or plasma alkaline phosphatase measurement (enzymatic activity/volume)2020-03-01 01:40:00* Test Item Value Reference Range Interpretation Comments Alkaline Phosphatase (test code = 6768-6) 66 40-150 [facility] HospitalTroponin I measurement by highly sensitive enzyme tquditfscqe6429-15-50 01:40:00* Test Item Value Reference Range Interpretation Comments Troponin I (test code = 47953-6) < 0.001 0-0.300 [facility] Hospitalerum or plasma lipase measurement (enzymatic activity/volume)2020-03-01 01:40:00* Test Item Value Reference Range Interpretation Comments Lipase (test code = 3040-3) 9 8-78 [facility] RIGHT PXZ5177-61-45 15:57:00 [place] [address] Patient Name: CATRINA SUTHERLAND MR #: [id number] : 1935 Age/Sex: 83/M Req #: [id number] Adm Physician: Ordered by: BETTY FARRIS MD Report #: [id number] Location: [facility] Room/Bed: Procedure: [id number] M RI/MRI HAND RIGHT WOW Exam Date: [...] FARRIS MD CHEST 2 VIEWS 2018-04-17 09:42:00 [place] [address] Patient Name: CATRINA SUTHERLAND MR #: [id number] : 1935 Age/Sex: 82/M Req #: [id number] [facility] Physician: Ordered by: AARON PRETTY MD Report #: [id number] Location: OR Room/Bed: Procedure: [id number] DX/RUPERT ST 2 VIEWS Exam Date: Exam [...] TO: AARON PRETTY MD CHEST [address] [address] Patient Name: CATRINA SUTHERLAND MR #: [id number] : 1935 Age/Sex: 81/M Req #: [id number] [facility] Physician: Ordered by: AARON PRETTY MD Report #: [id number] Location: OR Room/Bed: Procedure: [id number] DX/CHEST 2 VIEWS Exam Date: 02/10 10/25 [...] Signed By: NATIVIDAD MEDINA MD on 03/05/17 1351 Transcribed By: DONNA on 03/05/17 1355 COPY TO: AARON PRETTY MD
--- NOTE | 2020-03-07 19:00 | NUR ---
RECEIVED PATIENT IN BEDSIDE SHIFT REPORT. PATIENT RESTING IN BED AT THIS TIME. NO PAIN REPORTED. NO S&S OF DISTRESS NOTED. BED LOCKED IN LOWEST POSITION, SIDE RIALS UPX2, CALL LIGHT IN REACH.
--- NOTE | 2020-03-07 19:08 | NUR ---
Report given to oncoming nurse of patient's status. Resting in bed. no s/s of acute distress noted. Side rails upx2, call light within reach.
--- NOTE | 2020-03-07 20:14 | Progress Note ---
DATE: SUBJECTIVE: Currently, the patient states no abdominal pain, tolerating his clear liquid diet well. No nausea. No chills. The patient states 2 suppositories planned for in the morning. NG tube was removed on 03/05. OBJECTIVE: VITAL SIGNS: Temperature 98.5, pulse 73, blood pressure 149/80, respirations 20, oxygen saturation 98%. GENERAL: Supine, in no acute distress. LUNGS: Clear to auscultation. Respiratory pattern even and unlabored. HEENT: EOMI. NECK: Supple. CARDIOVASCULAR: Regular rate and rhythm without murmur. Left subclavian central venous catheter. Normal saline plus 20 mEq potassium chloride infusing at 100 mL an hour. ABDOMEN: Bowel sounds are positive in 4 quadrants. Soft. Minimal pain to gentle palpation. Midline abdominal incision with approximately 37 jennifer. EXTREMITIES: No pitting edema. No clubbing, cyanosis, or signs of DVT. NEUROLOGICAL: GCS 15. Nonfocal. LABORATORY DATA: Lab holiday. IMAGING: No new imaging. ASSESSMENT AND PLAN: 1. 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 Continue Flagyl and Rocephin IV antibiotics as per Infectious Disease. Continue IV hydration, pain control. Tolerating a clear liquid diet well, having bowel movements. Appreciate recommendations from surgical team. 2. Controlled hypertension. Blood pressure 149/80. Continue p.r.n. IV metoprolol tartrate. Monitor blood pressure. 3. Hyperlipidemia. Restart Pravachol soon. 4. Prophylaxis. Protonix, Pepcid, and SCDs. Inpatient, billing code [id number], time spent 35 minutes. Dictated by Santo Medley NP MD ALICIA NixonP/MODL /[id number]
[2020-03-08] VITALS (8 sets, daily range): BP systolic 143–163; BP diastolic 77–91
[2020-03-08] MEDS: METRONIDAZOLE 500MG/NS 100ML 100 ML IV SCH ×4 (00:10→17:09)
[2020-03-08] MEDS: KCL 20MEQ/.9 SOD CHL 1,000 ML IV SCH (03:54)
[2020-03-08 05:15] LABS: BASOPHILS # (AUTO) 0.1 (0.0-0.1); BASOPHILS % 0.4 % (0.0-1.0); EOSINOPHILS # (AUTO) 0.6 (0.0-0.4); HEMATOCRIT 30.3 % (38.2-49.6); HEMOGLOBIN 10.1 g/dL (14.0-18.0); LYMPHOCYTES # (AUTO) 1.3 (1.0-3.2); LYMPHOCYTES % 8.6 % (18.0-39.1); MEAN CORPUSCULAR HEMOGLOBIN 30.8 pg (28-32); MEAN CORPUSCULAR HGB CONC 33.3 g/dL (31-35); MEAN CORPUSCULAR VOLUME 92.4 fL (81-99); MONOCYTES # (AUTO) 1.2 (0.2-0.8); MONOCYTES % 8.3 % (4.4-11.3); NEUTROPHILS # (AUTO) 11.5 (2.1-6.9); NEUTROPHILS % 77.9 % (38.7-80.0); PLATELET COUNT 397 x10e3/uL (140-360); RED BLOOD COUNT 3.28 x10e6/uL (4.3-5.7); RED CELL DISTRIBUTION WIDTH 12.7 % (11.7-14.4)
[2020-03-08 05:47] LABS: ANION GAP 12.9 mmol/L (8-16); BLOOD UREA NITROGEN 8 mg/dL (7-26); BUN/CREATININE RATIO 11 (6-25); CALCIUM 7.5 mg/dL (8.4-10.2); CARBON DIOXIDE 17 mmol/L (22-29); CHLORIDE 107 mmol/L (98-107); CREATININE, SERUM 0.73 mg/dL (0.72-1.25); EST GLOMERULAR FILTRATION RATE > 60 ML/MIN (60-); GLUCOSE 75 mg/dL (74-118); MAGNESIUM 1.7 MG/DL (1.3-2.1); POTASSIUM 3.9 mmol/L (3.5-5.1); SODIUM 133 mmol/L (136-145)
[2020-03-08] MEDS: METOPROLOL TARTRATE 25 MG TAB PO SCH ×3 (06:14→22:07)
--- NOTE | 2020-03-08 07:00 | NUR ---
BEDSIDE SHIFT REPORT RECEIVED FROM JERO ROBERT. PT DENIES FURTHER NEEDS AT THIS TIME.
[2020-03-08] MEDS: CEFTRIAXONE SOD 1 GM/NS 50 ML 50 ML IV SCH (08:43)
[2020-03-08] MEDS: FAMOTIDINE 20 MG/2 ML VIAL IV SCH ×2 (08:43→17:09)
[2020-03-08] MEDS: PANTOPRAZOLE 40 MG 10ML VIAL IV SCH (08:43)
[2020-03-08] MEDS: BISACODYL 10 MG SUPP PR SCH ×2 (08:43→17:09)
[2020-03-08] MEDS: LISINOPRIL 10 MG TAB PO SCH (08:43)
[2020-03-08] MEDS ORDERED: METOPROLOL SUCC50 MG PO (10:36)
[2020-03-08] MEDS ORDERED: PANTOPRAZOLE SO40 MG PO (10:36)
--- NOTE | 2020-03-08 17:12 | NUR ---
INFECTIOUS DISEASE PROGRESS NOTE DR. DERECK ROONEY REVIEW OF SYSTEMS: Extensive to all systems, All negative except abdominal pain as mentioned above and GENERAL: The patient was having chills with this acute illness and he was not feeling well at all. HEENT: Very difficulty hearing. CARDIAC AND PULMONARY: As per above. GI: As per acute illness. Sudden onset of severe abdominal pain. : His urine is by far much better and he is able to pass urine without difficulty. No hematuria, no dysuria. MUSCULOSKELETAL: No back pain. No leg pain. NEUROLOGICAL: Beside hard of hearing, there is no seizure or weakness. HEMATOLOGY: No easy bruising or bleeding. ENDOCRINE: No diabetes mellitus. PHYSICAL EXAMINATION: VITAL SIGNS: per chart HEENT: NG to suction. normocephalic not pale not icteric NECK: No elevation of jugular venous pulsation. No thyromegaly. No lymphadenopathy. CHEST: Decreased air entry in bases with crackles. HEART: PMI 5th left intercostal space. Normal first and second heart sound. ABDOMEN: Dressing in place. No bowel sounds at distention noted. EXTREMITIES: No cyanosis, no clubbing, no edema. No signs of deep venous thrombosis. NEUROLOGIC: Awake, alert. No motor or sensory deficit. The major abnormality is he cannot hear and he is using hearing aid. LABORATORY DATA: per chart IMPRESSION AND PLAN: 1. Small bowel obstruction, status post surgical intervention. 2. History of hypertension, cardiology is following. 3. Hypercholesteremia.cardiology is following 4. Prostate, status post several prostate surgery. 5. 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 6. Difficulty hearing. 7. Leukocytosis, improvement Rocephin Flagyl advance diet if okay with surgery Will d/c with oral cipro and flagyl when cleared by others Cheyenne Cary MSN, STRATEGY INTERN, AGACNP-BC Dereck Rooney M.D
--- NOTE | 2020-03-08 19:10 | NUR ---
Received the pt in report.aox3.no resp.distress.no pain voiced.abd.incision with jennifer open to air.bed locked and in lowest position.phone and call light within reach.instructed to call for assistance as needed.
[2020-03-08] MEDS ORDERED: LISINOPRIL 10 MG TAB PO SCH (21:00)
[2020-03-08] MEDS ORDERED: PRAVASTATIN 20 MG TAB PO SCH (21:00)
[2020-03-09] VITALS: BP 149/88
[2020-03-09] MEDS: METRONIDAZOLE 500MG/NS 100ML 100 ML IV SCH ×2 (00:23→05:06)
[2020-03-09 04:00] VITALS: BP 156/79
[2020-03-09] MEDS: KCL 20MEQ/.9 SOD CHL 1,000 ML IV SCH (04:49)
[2020-03-09 05:09] LABS: BASOPHILS % 0.2 % (0.0-1.0); EOSINOPHILS # (AUTO) 0.5 (0.0-0.4); EOSINOPHILS % 4.1 % (0.0-6.0); HEMATOCRIT 28.2 % (38.2-49.6); HEMOGLOBIN 9.3 g/dL (14.0-18.0); LYMPHOCYTES # (AUTO) 0.8 (1.0-3.2); MEAN CORPUSCULAR HEMOGLOBIN 29.6 pg (28-32); MEAN CORPUSCULAR VOLUME 89.8 fL (81-99); MONOCYTES # (AUTO) 1.4 (0.2-0.8); MONOCYTES % 10.4 % (4.4-11.3); NEUTROPHILS # (AUTO) 10.4 (2.1-6.9); NEUTROPHILS % 78.5 % (38.7-80.0); PLATELET COUNT 352 x10e3/uL (140-360); RED BLOOD COUNT 3.14 x10e6/uL (4.3-5.7); RED CELL DISTRIBUTION WIDTH 12.9 % (11.7-14.4)
[2020-03-09 05:34] LABS: ALANINE AMINOTRANSFERASE 10 IU/L (0-55); ALBUMIN 2.8 g/dL (3.5-5.0); ALBUMIN/GLOBULIN RATIO 1.5 (0.8-2.0); ALKALINE PHOSPHATASE 39 IU/L (40-150); ANION GAP 11.9 mmol/L (8-16); BLOOD UREA NITROGEN 6 mg/dL (7-26); BUN/CREATININE RATIO 8 (6-25); CALCIUM 7.5 mg/dL (8.4-10.2); CARBON DIOXIDE 22 mmol/L (22-29); CHLORIDE 104 mmol/L (98-107); CREATININE, SERUM 0.71 mg/dL (0.72-1.25); EST GLOMERULAR FILTRATION RATE > 60 ML/MIN (60-); GLUCOSE 89 mg/dL (74-118); MAGNESIUM 1.6 MG/DL (1.3-2.1); POTASSIUM 3.9 mmol/L (3.5-5.1); SODIUM 134 mmol/L (136-145)
[2020-03-09] MEDS: METOPROLOL TARTRATE 25 MG TAB PO SCH ×2 (05:43→14:33)
--- NOTE | 2020-03-09 07:00 | NUR ---
BEDSIDE SHIFT REPORT RECEIVED FROM JERO ROBERT. PT DENIES FURTHER NEEDS AT THIS TIME.
--- NOTE | 2020-03-09 07:06 | NUR ---
REPORT GIVEN TO ONCOMING RN.STABLE CONDITION.
[2020-03-09 08:00] VITALS: BP 149/70
[2020-03-09] MEDS: PANTOPRAZOLE 40 MG 10ML VIAL IV SCH (08:58)
[2020-03-09] MEDS: CEFTRIAXONE SOD 1 GM/NS 50 ML 50 ML IV SCH (08:58)
[2020-03-09] MEDS: FAMOTIDINE 20 MG/2 ML VIAL IV SCH (08:58)
[2020-03-09] MEDS: LISINOPRIL 10 MG TAB PO SCH (08:59)
[2020-03-09 09:00] VITALS: BP 149/70
[2020-03-09 12:12] VITALS: BP 152/78
--- NOTE | 2020-03-09 12:13 | NUR ---
OK FROM THE STANDPOINT OF DR. LIMON FOR PT TO DISCHARGE HOME. PT STARTED GETTING DRESSED AND ATTEMPTED TO PULL OUT CENTRAL LINE. HE BROKE 2 SUTURES. THIS NURSE WAS CALLED BY PT. LINE REMOVED BY THIS NURSE, TIP INTACT, BLEEDING STOPPED AND DRESSING PLACED. STILL WAITING FOR ATTENDING.
--- NOTE | 2020-03-09 13:15 | NUR ---
IMM letter delivered and explained to pt. He verbalized understanding and states he's waiting for MD to come discharge him. Copy given to pt. Signed copy placed in chart.
--- NOTE | 2020-03-09 13:39 | Progress Note ---
DATE: SUBJECTIVE: Mr. Malcolm is doing better. There are no complaints. He wants to go home. REVIEW OF SYSTEMS: Otherwise, HEENT: Negative. PULMONARY: Negative. CARDIAC: Negative. PHYSICAL EXAMINATION: GENERAL: He is currently alert and oriented. VITAL SIGNS: Stable, currently afebrile. HEENT: He is not icteric. NECK: Supple. CHEST: Clear. HEART: S1 and S2. ABDOMEN: Soft. Bowel sounds present. EXTREMITIES: No edema. SKIN: No rash. IMPRESSION: Status post exploratory laparotomy, small bowel obstruction, ischemia. We will discontinue antibiotic. Continue to push p.o. fluid. Discharge planning per others. Discussed with the patient. Discussed with medical team. Can discontinue line for discharge. We will follow. MD MATTEO Stahl/ERICA /[id number]
[2020-03-09 16:00] VITALS: BP 155/94
[2020-03-09] MEDS ORDERED: PROTONIX40 MG PO (16:08)
[2020-03-09] MEDS ORDERED: LOPRESSOR25 MG PO (16:08)
--- NOTE | 2020-03-09 20:32 | Discharge Summary ---
CONSULTING PHYSICIANS: 1. Dr. Wendi Varghese. 2. Dr. Nathan Myers with Surgery. 3. Dr. Rashad Goodwin with Cardiology. PCP: Dr. Krishna Olivera. CHIEF COMPLAINT: Abdominal pain. HISTORY: The patient is an 84-year-old male, who was admitted via the emergency department with complaints of epigastric abdominal pain, radiating to the umbilical region with nausea and vomiting, onset 4 hours prior to admission with a pain level of 9/10 in the emergency department. The patient was seen in intermediate care unit, room 187, status post exploratory laparotomy with bowel resection on 03/01. The patient required additional surgery the following day. PAST MEDICAL HISTORY: Hypertension, hyperlipidemia, benign prostatic hypertrophy. PAST SURGICAL HISTORY: Appendectomy, UroLift, prostate surgery. FAMILY HISTORY: Noncontributory. Denies any past family history. SOCIAL HISTORY: The patient smokes cigars 2 to 3 times a week. Drinks 2 alcoholic drinks per day. Denies any illicit drug use. ALLERGIES: NO KNOWN ALLERGIES. ADMITTING DIAGNOSES: 1. Ischemic bowel, now status post exploratory laparotomy with small bowel resection on 03/[address] Nathan Myers. 2. Acute abdominal pain. 3. Controlled hypertension. 4. Hyperlipidemia. 5. Active smoker with subsegmental atelectasis. 6. Infrarenal abdominal aortic aneurysm measuring 3.9. DISCHARGE DIAGNOSES: 1. 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 2. Controlled hypertension. 3. Hyperlipidemia. 4. Active smoker with subsegmental atelectasis, improved. 5. Infrarenal abdominal aortic aneurysm measuring 3.9 cm. HOSPITAL COURSE: On 03/06, the patient's abdominal pain was 2/10 on a 0-10 pain scale. He was having flatus , had a BM after suppository. His NG tube had been removed on 03/05. He was on Flagyl and Rocephin IV antibiotics as per Infectious Disease recommendations. He was on IV hydration and on narcotics for pain control. He remained n.p.o. at that time. He was placed on a clear liquid diet, which he tolerated fine. Today, vital signs; temperature 98.1, pulse 75, blood pressure 152/78, respirations 18, and oxygen saturation 99%. Labs on the day of discharge; sodium 134, potassium 3.9, chloride 102, CO2 of 22, BUN 6, creatinine 0.71, glucose 89. WBCs 13.2, hemoglobin 9.3, hematocrit 28.2, platelets 352, total bilirubin 0.5, AST 15, ALT 10, alkaline phosphatase 39. Per note from Infectious Disease this morning, antibiotic discontinued. Iatrogenic removal of PICC line today. The patient anxious to leave. No acute distress. Multiple jennifer and midline abdominal incision clean, dry, and intact. No change in physical exam. Continue regular diet. He is tolerating well. He states his abdominal pain is 1/10 on a 0-10 pain scale. Activity level as tolerated. Follow up with PCP in 1 to 2 weeks. Follow up with Dr. Nathan Myers as directed, call his office to make an appointment. Dictated by Santo Medley NP MD VEDA Nixon/ERICA /[id number]
== END 2020-03-09 16:35 | disposition home or self-care (01) | DRG 330 ==
LOC: ER 01:45 → ERHOLD 05:21 → UNDODISIN 06:55 → IMCU 13:41 → MED/SURG 03-04 17:39
PROVIDERS: ADMIT Internal Medicine; ATTEND Internal Medicine
PROC: 0D180Z8 Bypass Small Intestine to Small Intestine, Open Approach (ICD-10-PCS; 2020-03-03)
PROC: 0DT80ZZ Resection of Small Intestine, Open Approach (ICD-10-PCS; principal; 2020-03-03 09:06)
DX: K55.021 Focal (segmental) acute infarction of small intestine (principal); K56.601 Complete intestinal obstruction, unspecified as to cause; J98.11 Atelectasis; K55.9 Vascular disorder of intestine, unspecified; I10 Essential (primary) hypertension; I71.4 Abdominal aortic aneurysm, without rupture; E78.5 Hyperlipidemia, unspecified; F17.200 Nicotine dependence, unspecified, uncomplicated; Z11.59 Encounter for screening for other viral diseases; E78.00 Pure hypercholesterolemia, unspecified; H91.90 Unspecified hearing loss, unspecified ear; R00.0 Tachycardia, unspecified; N40.0 Benign prostatic hyperplasia without lower urinary tract symptoms
CPT/HCPCS: 36415; 71045; 74018; 74174; 80048; 80053; 80061; 81001; 82948; 83036; 83605; 83690; 83735; 84100; 84443; 84484; 85025; 85610; 87040; 88307; 93005; 93306; 96361; 99251; 99284; J0330; J0360; J0461; J0690; J0696; J1100; J1170; J1885; J2001; J2250; J2270; J2405; J2543; J2710; J3010; J7030; J7050; Q9967; U0002

== ENCOUNTER 2022-09-13 21:01 | Emergency (ER) | payer MEDICARE ==
[~2022-09-13] VITALS: Ht 182.9 cm; Wt 72.6 kg
[~2022-09-13 21:01] MED LIST changes: +LOPRESSOR25 MG PO; +METOPROLOL SUCC50 MG PO; +PANTOPRAZOLE SO40 MG PO; +PROTONIX40 MG PO
== END 2022-09-13 22:15 | disposition home or self-care (01) ==
LOC: ER 21:23
DX: L76.22 Postprocedural hemorrhage of skin and subcutaneous tissue following other procedure (principal); E78.5 Hyperlipidemia, unspecified; Z85.820 Personal history of malignant melanoma of skin
CPT/HCPCS: 99284